=== PATIENT | male | born 1930 | race Hispanic/Latino ===

== ENCOUNTER 2017-07-16 20:40 | Inpatient (IN) | payer MEDICARE, MEDICAID ==
[2017-07-16] MEDS ORDERED: Albuterol-Ipratrop 3 mg / 0.5 (3 ml) UD ONE (20:57)
[2017-07-16 20:59] VITALS: BMI 27.1
[2017-07-16] MEDS ORDERED: Albuterol-Ipratrop 3 mg / 0.5 (3 ml) UD INH STA ×2 (21:01→21:02)
[2017-07-16] MEDS ORDERED: Piperacill/Tazo 3.375gm in Dex 3.375 GM/50 ML BAG IVPB STA (21:07)
[2017-07-16 21:18] LABS: BASO # 0.1 K/uL (0.0-0.2); BASO % 1.1 % (0.0-2.0); EOS # 0.2 K/uL (0.0-0.7); EOS % 1.7 % (0.0-4.0); HEMOGLOBIN 13.6 g/dL (12.0-18.0); LYMPH # 1.1 K/uL (1.0-4.3); LYMPH % 11.8 % (20.0-40.0); MEAN CELL VOLUME 86.7 fL (80.0-94.0); MEAN CORPUSCULAR HEMOGLOBIN 28.6 pg (27.0-31.0); MEAN PLATELET VOLUME 9.4 fL (7.2-11.7); MONO # 0.6 K/uL (0.0-0.8); MONO % 6.4 % (0.0-10.0); NEUT # 7.6 K/uL (1.8-7.0); RBC 4.76 Mil/uL (4.40-5.90); RED CELL DISTRIBUTION WIDTH 15.7 % (11.5-14.5); WHITE BLOOD COUNT 9.6 K/uL (4.8-10.8)
[2017-07-16 21:22] LABS: VENOUS BLOOD GAS BASE EXCESS -5.1 mmol/L (0.0-2.0); VENOUS BLOOD GAS PCO2 48 mmHg (40-60); VENOUS BLOOD GAS PO2 56 mm/Hg (30-55); VENOUS BLOOD PH 7.27 (7.32-7.43)
[2017-07-16 21:28] LABS: ALB/GLOB RATIO 1.1 (1.0-2.1); ALBUMIN 3.7 g/dL (3.5-5.0); CALCIUM 7.8 mg/dl (8.6-10.4)
[2017-07-16 21:30] LABS: INR 2.4; PROTHROMBIN TIME 27.3 SECONDS (9.7-12.2)
[2017-07-16 21:38] LABS: TROPONIN I 0.034 ng/mL (0.00-0.120)
--- NOTE | 2017-07-16 21:44 | C.PDOC ---
History Of Present Illness Patient is an 87 y/o male, with a Hx of AFib, HTN, and DM, who presents to the ED from long-term with a complaint of SOB. Per long-term, patient was hypoxic and tachypnic with no reported fever. Patient is full code at this time. No other physical complaints at this time. Time Seen by Provider: 07/16/17 20:57 Chief Complaint (Nursing): Shortness Of Breath History Per: Patient, Other (long-term) History/Exam Limitations: no limitations Onset/Duration Of Symptoms: Other (CREDIT INTERN) Current Symptoms Are (Timing): Still Present Associated Symptoms: denies: Fever Recent travel outside of the [place]: No Past Medical History Reviewed: Historical Data, Nursing Documentation, Vital Signs Vital Signs: Last Vital Signs Temp 98.4 F 07/20/17 15:00 Pulse 77 07/20/17 22:45 Resp 20 07/20/17 15:00 BP 183/96 H 07/20/17 22:45 Pulse Ox 96 07/20/17 23:17 - Medical History PMH: Anemia, CAD, Diabetes, HTN, Parkinson's Disease Denies: Depression Surgical History: Coronary Stent - [facility] Procedures CARDIOPULM RESUSCITA NOS (03/12/14) CLOSED ENDOSCOPIC BIOPSY OF LARGE INTESTINE (03/12/14) CONTINUOUS INVASIVE MECHANICAL VENTILATION <96 CONSEC HRS (03/12/14) ENDOSC POLYPECTOMY OF LG INTEST (03/26/99) ESOPHAGOGASTRODUODENOSCOPY [EGD] W/CLOSED BIOPSY (03/12/14) HEMODIALYSIS (03/12/14) INFUSION OF VASOPRESSOR AGENT (03/12/14) INJECT/INFUSE NEC (03/12/14) INSERT ENDOTRACHEAL TUBE (03/12/14) INSERT INDWELLING CATH (03/12/14) INTRA-ABD LG BOWEL MANIP (03/12/14) LG-TO-LG BOWEL ANASTOM (03/12/14) NEBULIZER THERAPY (04/21/14) NON-INVASIVE MECHANICAL VENTILATION (03/12/14) OPEN AND OTHER LEFT HEMICOLECTOMY (03/12/14) PACKED CELL TRANSFUSION (03/12/14) REPAIR OF SPLEEN (03/12/14) THERAPEUTIC ERYTHROCYTAPHERESIS (03/12/14) VENOUS CATHETERIZATION FOR RENAL DIALYSIS (03/12/14) VENOUS CATHETERIZATION NEC (03/12/14) Family History: States: No Known Family Hx - Social History Hx Tobacco Use: Yes (QUIT 4 YRS AGO) Hx Alcohol Use: No Hx Substance Use: No Review Of Systems Except As Marked, All Systems Reviewed And Found Negative. Respiratory: Positive for: Shortness of Breath, Other (hypoxic) Physical Exam - Physical Exam Appears: Well, Non-toxic, No Acute Distress Skin: Normal Color, Warm, Dry Head: Atraumatic, Normacephalic Oral Mucosa: Moist Cardiovascular: Rhythm Regular, No Murmur, Other (tachycardic) Respiratory: Normal Breath Sounds, Rhonchi (bilateral), Wheezing ED Course And Treatment - Laboratory Results Result Diagrams: 07/20/17 06:23 07/20/17 06:23 ECG: Interpreted By Me, Viewed By Me ECG Rhythm: Sinus Tachycardia, L BBB (history of L BBB dating 04/22/2014) Rate From EC (bpm) O2 Sat by Pulse Oximetry: 96 Medical Decision Making Medical Decision Making: Plan: * EKG, CXR, and blood work ordered * Lasix, vancocin, duoneb, and IV fluids Patient admitted to Hospitalist Dr. Wallace at 9:55pm. tolerating bipap, need tele, diuresis Disposition - Disposition Disposition: HOSPITALIZED Disposition Time: 10:00 Condition: FAIR - Clinical Impression Clinical Impression: Influenza A, Pneumonia, CHF (congestive heart failure) - Scribe Statement The provider has reviewed the documentation as recorded by the Scribe Maritza Franco All medical record entries made by the Scribe were at my direction and personally dictated by me. I have reviewed the chart and agree that the record accurately reflects my personal performance of the history, physical exam, medical decision making, and the department course for this patient. I have also personally directed, reviewed, and agree with the discharge instructions and disposition. Decision To Admit - Pt Status Changed To: Hospital Disposition Of: Inpatient - Admit Certification Admit to Inpatient:: After my assessment, the patient will require hospitalization for at least two midnights. This is because of the severity of symptoms shown, intensity of services needed, and/or the medical risk in this patient being treated as an outpatient. - InPatient: Physician Admission Certification: I certify that this patient requires 2 or more midnights of care for the following reason:: needs bipap - . Bed Request Type: Telemetry Admitting Physician: Ramesh Wallace Patient Diagnosis: Influenza A, Pneumonia, CHF (congestive heart failure) Critical Care Time - Critical Care Note Total Time (in mins): 35 Documented critical care: time excludes all time spent performing seperately billable procedures.
--- NOTE | 2017-07-16 22:08 | CP.PCM.HP ---
<Nicol Stephens - Last Filed: 07/17/17 04:36> History of Present Illness - History of Present Illness History of Present Illness: Medicine Note for Hospital Service CC: SOB HPI: Patient is an 87 y/o male, with a Hx of AFib, HTN, DM, PD, and Dementia who presents to the ED from residential with a complaint of SOB. Per residential, patient was hypoxic and tachypnic with no reported fever. Patient is full code at this time. History unable to be retrieve from the patient, he is alert but does not answer questions. Patient was saturating well on BiPAP - O2% was titrated to 30% during exam. PMHx: AFib, HTN, DM, PD, and Dementia PSHx: Hemicolectomy s/p colon cancer Meds: As per AUG, reviewed and confirmed All: NKDA SHx: Unknown FHx: Unknown PMD: Unknown Present on Admission - Present on Admission Any Indicators Present on Admission: No Past Patient History - Infectious Disease Hx of Infectious Diseases: None - Tetanus Immunizations Tetanus Immunization: Unknown - Past Social History Smoking Status: Former Smoker - CARDIAC Hx Hypertension: Yes - PULMONARY Hx Respiratory Disorders: No - NEUROLOGICAL Hx Parkinson's Disease: Yes - HEENT Hx HEENT Problems: No - RENAL Other/Comment: Renal Insufficiency - ENDOCRINE/METABOLIC Hx Endocrine Disorders: Yes Hx Diabetes Mellitus Type 2: Yes - HEMATOLOGICAL/ONCOLOGICAL Hx Anemia: Yes - INTEGUMENTARY Hx Dermatological Problems: No - MUSCULOSKELETAL/RHEUMATOLOGICAL Hx Falls: Yes Hx Unsteady Gait: Yes - GASTROINTESTINAL Hx Gastrointestinal Disorders: No - GENITOURINARY/GYNECOLOGICAL Hx Genitourinary Disorders: Yes (Frequency, dribbling) - PSYCHIATRIC Hx Depression: No Hx Substance Use: No - SURGICAL HISTORY Hx Coronary Stent: Yes - ANESTHESIA Hx Anesthesia Reactions: No Hx Malignant Hyperthermia: No Meds Allergies/Adverse Reactions: Allergies Allergy/AdvReac Type Severity Reaction Status Date / Time No Known Allergies Allergy Verified 07/16/17 20:59 Physical Exam - Constitutional Appears: No Acute Distress - Head Exam Head Exam: NORMAL INSPECTION, NORMOCEPHALIC - Eye Exam Eye Exam: EOMI, Normal appearance, PERRL Pupil Exam: NORMAL ACCOMODATION - ENT Exam ENT Exam: Mucous Membranes Moist, Normal Exam - Respiratory Exam Respiratory Exam: Decreased Breath Sounds - Cardiovascular Exam Cardiovascular Exam: Tachycardia - GI/Abdominal Exam GI & Abdominal Exam: Normal Bowel Sounds, Soft. absent: Distended, Tenderness Additional comments: surgical scar noted at midline - Extremities Exam Extremities exam: Positive for: normal inspection, pedal pulses present. Negative for: pedal edema, tenderness - Back Exam Back exam: NORMAL INSPECTION - Neurological Exam Neurological exam: Alert - Psychiatric Exam Psychiatric exam: Normal Affect, Normal Mood - Skin Skin Exam: Dry, Intact, Normal Color, Warm Results - Vital Signs Recent Vital Signs: Last Vital Signs Temp 98 F 07/16/17 20:59 Pulse 100 H 07/16/17 21:45 Resp 23 07/16/17 21:45 BP 161/58 H 07/16/17 21:52 Pulse Ox 96 07/16/17 21:57 - Labs Result Diagrams: 07/16/17 21:06 07/16/17 21:06 Labs: Laboratory Results - last 24 hr 07/16/17 07/16/17 07/16/17 21:06 21:06 21:06 WBC 9.6 RBC 4.76 Hgb 13.6 Hct 41.2 MCV 86.7 MCH 28.6 MCHC 33.0 RDW 15.7 H Plt Count 162 MPV 9.4 Neut % (Auto) 79.0 H Lymph % (Auto) 11.8 L Reynolds % (Auto) 6.4 Eos % (Auto) 1.7 Baso % (Auto) 1.1 Neut # 7.6 H Lymph # 1.1 Reynolds # 0.6 Eos # 0.2 Baso # 0.1 PT 27.3 H INR 2.4 APTT 37 H pO2 VBG pH VBG pCO2 VBG HCO3 VBG Total CO2 VBG O2 Sat (Calc) VBG Base Excess VBG Potassium Glucose Lactate Crit Value Called To Crit Value Called By Crit Value Read Back Blood Gas Notified Time Sodium 130 L Potassium 5.4 H Chloride 99 Carbon Dioxide 22 Anion Gap 14 BUN 32 H Creatinine 2.0 H Est GFR ( Amer) 38 Est GFR (Non-Af Amer) 32 POC Glucose (mg/dL) Random Glucose 263 H Calcium 7.8 L Total Bilirubin 0.5 AST 28 ALT 33 Alkaline Phosphatase 100 Troponin I 0.0340 NT-Pro-B Natriuret Pep 4060 H Total Protein 7.0 Albumin 3.7 Globulin 3.3 Albumin/Globulin Ratio 1.1 Venous Blood Potassium 07/16/17 07/16/17 21:13 21:18 WBC RBC Hgb Hct MCV MCH MCHC RDW Plt Count MPV Neut % (Auto) Lymph % (Auto) Reynolds % (Auto) Eos % (Auto) Baso % (Auto) Neut # Lymph # Reynolds # Eos # Baso # PT INR APTT pO2 56 H VBG pH 7.27 L VBG pCO2 48 VBG HCO3 20.6 VBG Total CO2 23.5 VBG O2 Sat (Calc) 90.0 H VBG Base Excess -5.1 L VBG Potassium 6.3 H* Glucose 270 H Lactate 1.2 Crit Value Called To Crit Value Called By Kortney hernandez Crit Value Read Back Y Blood Gas Notified Time 2121 Sodium 134.0 Potassium Chloride 106.0 Carbon Dioxide Anion Gap BUN Creatinine Est GFR ( Amer) Est GFR (Non-Af Amer) POC Glucose (mg/dL) 248 H Random Glucose Calcium Total Bilirubin AST ALT Alkaline Phosphatase Troponin I NT-Pro-B Natriuret Pep Total Protein Albumin Globulin Albumin/Globulin Ratio Venous Blood Potassium 6.3 H* Assessment & Plan - Assessment and Plan (Free Text) Assessment: 87 y/o male, with a Hx of AFib, HTN, DM, PD, and Dementia who presents to the ED from residential with a complaint of SOB. Plan: Influenza Febrile, no leukocytosis with left shift Influenza + Imaging: CXR: Questionable infiltrates F/U CT Chest Meds: Zosyn, Vancomycin started 07/16/17 - f/u vanco trough Tamiflu 75mg PO daily x 5 days (renally dosed) CKD Stage 3B Hx of CHF ECHO 2013 LVEF 28% F/U ECHO HX AFib Resumed home medications: Coumadin will need to be ordered daily. Coumadin 2mg MWF, Coumadin 1mg STT. Current INR 2.4 F/U INR HX DM Accuchecks F/U HgbA1C ISS- Low Hx HTN Resumed home medications: Metoprolol 50mg PO daily HX PD Hx Dementia Resumed home medications: Sinemet daily Prophylactic Measures GI PPX: Pepcid 20mg PO daily DVT PPX: SCDs, patient on coumadin DW Nicol Flor DO, PGY-1 <Ramesh Wallace P - Last Filed: 07/17/17 07:07> Results - Vital Signs Recent Vital Signs: Last Vital Signs Temp 98.9 F 07/17/17 01:02 Pulse 78 07/17/17 05:01 Resp 20 07/17/17 01:09 BP 124/67 07/17/17 01:02 Pulse Ox 98 07/17/17 01:02 - Labs Result Diagrams: 07/16/17 21:06 07/16/17 21:06 Labs: Laboratory Results - last 24 hr 07/16/17 07/16/17 07/16/17 21:06 21:06 21:06 WBC 9.6 RBC 4.76 Hgb 13.6 Hct 41.2 MCV 86.7 MCH 28.6 MCHC 33.0 RDW 15.7 H Plt Count 162 MPV 9.4 Neut % (Auto) 79.0 H Lymph % (Auto) 11.8 L Reynolds % (Auto) 6.4 Eos % (Auto) 1.7 Baso % (Auto) 1.1 Neut # 7.6 H Lymph # 1.1 Reynolds # 0.6 Eos # 0.2 Baso # 0.1 PT 27.3 H INR 2.4 APTT 37 H pO2 VBG pH VBG pCO2 VBG HCO3 VBG Total CO2 VBG O2 Sat (Calc) VBG Base Excess VBG Potassium Glucose Lactate Crit Value Called To Crit Value Called By Crit Value Read Back Blood Gas Notified Time Sodium 130 L Potassium 5.4 H Chloride 99 Carbon Dioxide 22 Anion Gap 14 BUN 32 H Creatinine 2.0 H Est GFR ( Amer) 38 Est GFR (Non-Af Amer) 32 POC Glucose (mg/dL) Random Glucose 263 H Calcium 7.8 L Total Bilirubin 0.5 AST 28 ALT 33 Alkaline Phosphatase 100 Troponin I 0.0340 NT-Pro-B Natriuret Pep 4060 H Total Protein 7.0 Albumin 3.7 Globulin 3.3 Albumin/Globulin Ratio 1.1 Venous Blood Potassium Influenza Typ A,B (EIA) 07/16/17 07/16/17 07/16/17 21:13 21:18 21:25 WBC RBC Hgb Hct MCV MCH MCHC RDW Plt Count MPV Neut % (Auto) Lymph % (Auto) Reynolds % (Auto) Eos % (Auto) Baso % (Auto) Neut # Lymph # Reynolds # Eos # Baso # PT INR APTT pO2 56 H VBG pH 7.27 L VBG pCO2 48 VBG HCO3 20.6 VBG Total CO2 23.5 VBG O2 Sat (Calc) 90.0 H VBG Base Excess -5.1 L VBG Potassium 6.3 H* Glucose 270 H Lactate 1.2 Crit Value Called To Crit Value Called By Kortney hernandez Crit Value Read Back Y Blood Gas Notified Time 2121 Sodium 134.0 Potassium Chloride 106.0 Carbon Dioxide Anion Gap BUN Creatinine Est GFR ( Amer) Est GFR (Non-Af Amer) POC Glucose (mg/dL) 248 H Random Glucose Calcium Total Bilirubin AST ALT Alkaline Phosphatase Troponin I NT-Pro-B Natriuret Pep Total Protein Albumin Globulin Albumin/Globulin Ratio Venous Blood Potassium 6.3 H* Influenza Typ A,B (EIA) Pos for influenza a H 07/17/17 06:12 WBC RBC Hgb Hct MCV MCH MCHC RDW Plt Count MPV Neut % (Auto) Lymph % (Auto) Reynolds % (Auto) Eos % (Auto) Baso % (Auto) Neut # Lymph # Reynolds # Eos # Baso # PT INR APTT pO2 VBG pH VBG pCO2 VBG HCO3 VBG Total CO2 VBG O2 Sat (Calc) VBG Base Excess VBG Potassium Glucose Lactate Crit Value Called To Crit Value Called By Crit Value Read Back Blood Gas Notified Time Sodium Potassium Chloride Carbon Dioxide Anion Gap BUN Creatinine Est GFR ( Amer) Est GFR (Non-Af Amer) POC Glucose (mg/dL) 126 H Random Glucose Calcium Total Bilirubin AST ALT Alkaline Phosphatase Troponin I NT-Pro-B Natriuret Pep Total Protein Albumin Globulin Albumin/Globulin Ratio Venous Blood Potassium Influenza Typ A,B (EIA) Attending/Attestation - Attestation I have personally seen and examined this patient.: Yes I have fully participated in the care of the patient.: Yes I have reviewed all pertinent clinical information: Yes Notes (Text): Assessment * SOB from influenza and pna * h/o CHF clinically not decompenseated * H/o parkinson * h/o dm * H/o dementia * H/o afib currently sinus on coumedin, therapeutic inr * h/o cri Plan * Empiric abx vanco, zosyn, tamiflu * supportive care * DVT prophylaxis with coumedin * Echo due to h/o CHF * Chest CT to assess infiltrates see on CXR * Abg * See orders for detail.
[2017-07-17] MEDS ORDERED: Piperacill/Tazo 3.375gm in Dex 3.375 GM/50 ML BAG IVPB SCH (00:15)
[2017-07-17] MEDS: Piperacill/Tazo 3.375gm in Dex 3.375 GM/50 ML BAG IVPB SCH ×4 (04:19→21:45)
[2017-07-17] MEDS: (Novolin R) Insulin Human Regular 100 units/ml vial SC SCH ×4 (07:53→21:53)
[2017-07-17 08:02] LABS: BASO % 0.4 % (0.0-2.0); EOS # 0.1 K/uL (0.0-0.7); EOS % 1.4 % (0.0-4.0); HEMOGLOBIN 12.3 g/dL (12.0-18.0); MEAN PLATELET VOLUME 9.4 fL (7.2-11.7); NRBC % 0.1 % (0.0-2.0); RED CELL DISTRIBUTION WIDTH 15.5 % (11.5-14.5)
[2017-07-17 08:30] LABS: ALB/GLOB RATIO 1.1 (1.0-2.1); ALBUMIN 3.4 g/dL (3.5-5.0); CALCIUM 7.7 mg/dl (8.6-10.4)
[2017-07-17 08:33] LABS: LYMPH # 0.8 K/uL (1.0-4.3); LYMPH % 18.7 % (20.0-40.0); MEAN CELL VOLUME 86.3 fL (80.0-94.0); MEAN CORPUSCULAR HEMOGLOBIN 28.6 pg (27.0-31.0); MEAN CORPUSCULAR HGB CONC 33.1 g/dL (33.0-37.0); MONO # 0.6 K/uL (0.0-0.8); MONO % 14.9 % (0.0-10.0); NEUT # 2.8 K/uL (1.8-7.0); NEUT % 64.6 % (50.0-75.0); RBC 4.31 Mil/uL (4.40-5.90)
[2017-07-17 08:34] LABS: WHITE BLOOD COUNT 4.3 K/uL (4.8-10.8)
--- NOTE | 2017-07-17 08:34 | RAD ---
Chest x-ray single frontal view History: Chest pain. Comparison: 07/16/2014 Findings: Prominent bibasilar airspace opacities. Small bilateral pleural effusions. Diffuse increased interstitial lung markings. Biapical pleural thickening. Cardiomegaly. Degenerative changes in the spine and shoulders. Impression: Prominent bibasilar airspace opacities. Small bilateral pleural effusions. Diffuse increased interstitial lung markings. Biapical pleural thickening. Cardiomegaly.
[2017-07-17 08:40] LABS: T4 6.09 ug/dL (5.5-11.0)
--- NOTE | 2017-07-17 09:03 | CP.PCM.PN ---
Subjective - Date & Time of Evaluation Date of Evaluation: 07/17/17 Time of Evaluation: 07:00 - Subjective Subjective: Patient was seen examined at bedside in the AM. Patient states yesterday he enjoyed the day with his family as it was his birthday but later in the evening he experienced some difficulty breathing. He states he now feels better. He denies shortness of breath, chest pain, nausea, vomiting, fever, chills, sweats , diarrhea or constipation. He states he does have a cough and he is producing white sputum. He states he normally urinates often in the residential but he does not use a guzman catheter in the residential. Objective - Vital Signs/Intake and Output Vital Signs (last 24 hours): Temp Pulse Resp BP Pulse Ox 98.9 F 86 20 124/67 98 07/17/17 01:02 07/17/17 07:08 07/17/17 01:09 07/17/17 01:02 07/17/17 01:02 Intake and Output: 07/17/17 07/17/17 06:59 18:59 Output Total 200 Balance -200 - Medications Medications: Current Medications Acetaminophen (Tylenol 325mg Tab) 650 mg PO Q6 [facility] Stop: 07/18/17 00:08 Last Admin: 07/17/17 05:53 Dose: Not Given Carbidopa/Levodopa (Sinemet) 1 tab PO QID [facility] Docusate Sodium (Colace) 100 mg PO HS [facility] Famotidine (Pepcid) 20 mg PO DAILY [facility] Gabapentin (Neurontin) 100 mg PO BID [facility] Vancomycin/Sodium Chloride (Vancomycin 1 Gm/Ns 200 Ml) 1 gm in 200 mls @ 133 mls/hr IVPB DAILY [facility] Stop: 07/22/17 10:01 Piperacillin Sod/Tazobactam Sod (Zosyn 3.375 Gm Iv Premix) 3.375 gm in 50 mls @ 100 mls/hr IVPB Q6H [facility] Last Admin: 07/17/17 04:19 Dose: 100 mls/hr Insulin Human Regular (Novolin R) 0 unit SC ACHS [facility] PRN Reason: Protocol Last Admin: 07/17/17 07:53 Dose: Not Given Metoprolol Succinate (Toprol Xl) 50 mg PO DAILY [facility] Oseltamivir Phosphate (Tamiflu Cap) 75 mg PO DAILY [facility] Stop: 07/22/17 02:25 Rosuvastatin Calcium (Crestor) 20 mg PO HS [facility] Tamsulosin HCl (Flomax) 0.4 mg PO DAILY [facility] Timolol Maleate (Timoptic 0.5% Ophth Soln) 1 drop OU BID [facility] - Labs Labs: 07/17/17 07:50 07/17/17 07:50 PT 27.3 SECONDS (9.7-12.2) H 07/16/17 21:06 INR 2.4 07/16/17 21:06 APTT 37 SECONDS (21-34) H 07/16/17 21:06 - Constitutional Appears: No Acute Distress - Head Exam Head Exam: ATRAUMATIC, NORMAL INSPECTION - Eye Exam Eye Exam: EOMI, Normal appearance - ENT Exam ENT Exam: Mucous Membranes Moist - Respiratory Exam Respiratory Exam: Wheezes, NORMAL BREATHING PATTERN. absent: Rales, Rhonchi, Respiratory Distress, Stridor - Cardiovascular Exam Cardiovascular Exam: REGULAR RHYTHM, RRR, +S1, +S2 - GI/Abdominal Exam GI & Abdominal Exam: Soft, Normal Bowel Sounds. absent: Tenderness - Extremities Exam Extremities Exam: Normal Inspection. absent: Pedal Edema, Tenderness - Neurological Exam Neurological Exam: Alert, Awake, Oriented x3 - Psychiatric Exam Psychiatric exam: Normal Affect, Normal Mood - Skin Skin Exam: Normal Color, Warm Assessment and Plan - Assessment and Plan (Free Text) Assessment: 87 y/o male, with a Hx of AFib, HTN, DM, Parkinson's Disease, and Dementia who presents to the ED from residential with a complaint of SOB. 1.) Influenza Type A - Febrile on admission; currently afebrile, no leukocytosis - Imaging: CXR: Questionable infiltrates CT Chest: Dense coronary artery calcifications. Right peritracheal lymph node measures approximately 10 mm in short axis. Additional sub cm mediastinal lymph nodes, nonspecific. Mild pulmonary venous congestion. Small bilateral pleural effusions and associated consolidations. 6 mm spiculated nodular density in the right upper lobe. Recommend [address] follow-up. Limited visualized upper abdomen: Cholelithiasis. Too small to characterize partially imaged renal hypodensities, possibly cysts. Large partially imaged fat containing ventral hernia. - Medications: * Zosyn started 07/16/17 * Vancomycin started 07/16/17 - f/u vanco trough * Tamiflu 75mg PO daily x 5 days (renally dosed) started 07/16/17 - Venti Mask 2.) CKD Stage 3B - BUN/Cr: 36/2.1 - GFR 27.28 - guzman catheter: Monitor I/Os 3.) History of CHF - ECHO 2013 LVEF 28% - F/U ECHO 4.) History AFib - Resumed home medications: Coumadin will need to be ordered daily. * Coumadin 2mg MWF * Coumadin 1mg STT - Current INR 2.4 - Monitor INR 5.) History of DM - Accuchecks - HgbA1C: 6.8 - ISS- Low 6.) History of Hypertension - Resumed home medications: Metoprolol 50mg PO daily 7.) History of Parkinson's Disease 8.) History of Dementia - Resumed home medications: Sinemet daily 9.) Prophylaxis - GI PPX: Pepcid 20mg PO daily - DVT PPX: SCDs, patient on coumadin Case discussed with Dr. Prosper Chan PGY-1
[2017-07-17] MEDS ORDERED: Vancomycin 1 gm/NS 200 ml 1 GM/200 ML BAG IVPB SCH (10:00)
[2017-07-17] MEDS: Carbidopa/Levodopa 25/250 PO SCH ×4 (11:32→21:45)
[2017-07-17] MEDS: Metoprolol Succinate 50 mg XL Tab PO SCH (11:33)
--- NOTE | 2017-07-17 11:36 | CT ---
CT chest without IV contrast Indication: Hypoxia Technique: Contiguous axial images were obtained through the chest without intravenous contrast enhancement. Sagittal and coronal reconstructions were generated and reviewed. This CT exam was performed using 1 or more of the falling dose reduction techniques: Automated exposure control, adjustment of the MAA and/or kV according to patient size, and/or use of iterative reconstruction technique. Radiation dose (DLP): 799.88 MGy-cm. Comparison: Chest x-ray performed 07/16/17 Findings: Visualized portions of the inferior thyroid gland appear unremarkable. The unenhanced mediastinal and hilar vascular structures appear grossly unremarkable. Heart size appears within normal limits. Dense coronary artery calcifications. Right peritracheal lymph node measures approximately 10 mm in short axis (series 4, image 48). Additional sub cm mediastinal lymph nodes, nonspecific. Mild pulmonary venous congestion. Small bilateral pleural effusions and associated consolidations. No pneumothorax. 6 mm spiculated nodular density in the right upper lobe (series 4, image 30). Limited visualization of the noncontrast upper abdomen demonstrates cholelithiasis. Too small to characterize partially imaged renal hypodensities, possibly cysts. Large partially imaged fat containing ventral hernia. Degenerative changes of the spine. Impression: Dense coronary artery calcifications. Right peritracheal lymph node measures approximately 10 mm in short axis. Additional sub cm mediastinal lymph nodes, nonspecific. Mild pulmonary venous congestion. Small bilateral pleural effusions and associated consolidations. 6 mm spiculated nodular density in the right upper lobe. Recommend [address] follow-up. Limited visualized upper abdomen: Cholelithiasis. Too small to characterize partially imaged renal hypodensities, possibly cysts. Large partially imaged fat containing ventral hernia.
[2017-07-17] MEDS ORDERED: Albuterol-Ipratrop 3 mg / 0.5 (3 ml) UD INH PRN (14:19)
[2017-07-17] MEDS: Saccharomyces Boulardi 250 mg Cap PO SCH (17:42)
[2017-07-17] MEDS: guaiFENesin 600 mg ER Tab PO SCH (17:43)
[2017-07-17 18:19] LABS: INR 1.7; PROTHROMBIN TIME 19.8 SECONDS (9.7-12.2)
[2017-07-17 19:07] LABS: SQUAMOUS EPITHIAL 1 /hpf (0-5); URINE BACTERIA RARE (<OCC); URINE BILIRUBIN NEGATIVE (NEGATIVE); URINE BLOOD NEGATIVE (NEGATIVE); URINE CLARITY Clear (Clear); URINE COLOR Yellow (YELLOW); URINE GLUCOSE (UA) NORMAL (Normal); URINE LEUKOCYTE ESTERASE NEG Leu/uL (Negative); URINE NITRATE NEGATIVE (NEGATIVE); URINE PROTEIN 2+ mg/dL (NEGATIVE); URINE UROBILINOGEN NORMAL mg/dL (0.2-1.0)
--- NOTE | 2017-07-17 19:18 | CARD ---
APPROVED REPORT EXAM: Two-dimensional and M-mode echocardiogram with Doppler and color Doppler. Other Information Quality : GoodRhythm : INDICATION Atrial Fibrillation Congestive Heart Failure RISK FACTORS Hypertension Diabetes 2D DIMENSIONS IVSd1.4 (0.7-1.1cm)LVDd5.5 (3.9-5.9cm) PWd0.9 (0.7-1.1cm)LVDs4.3 (2.5-4.0cm) FS (%) 22.2 %LVEF (%)44.3 (>50%) M-Mode DIMENSIONS RVDd1.02 (2.1-3.2cm)Left Atrium (MM)3.95 (2.5-4.0cm) IVSd0.94 (0.7-1.1cm)Aortic Root3.33 (2.2-3.7cm) LVDd5.66 (4.0-5.6cm)Aortic Cusp Exc.2.28 (1.5-2.0cm) PWd1.17 (0.7-1.1cm)FS (%) 17 % LVDs4.69 (2.0-3.8cm)LVEF (%)36 (>50%) Mitral Valve MV E [id number]/sMV A Kxvxowqj03.7cm/sE/A ratio2.3 TDI E/Lateral E'0.0E/Medial E'0.0 Tricuspid Valve TR Peak [id number]/sTR Peak [id number] LEFT VENTRICLE The Left Ventricle is moderately dilated. Possible borderline to mild concentric left ventricular hypertrophy. The systolic function is moderately impaired. The Ejection Fraction is - 35-40%. There is global hypokinesis of the left ventricle. Moderate diastolic dysfunction. Transmitral Doppler flow pattern is Grade II-pseudonormal filling dynamics. Elevated left atrial pressure. RIGHT VENTRICLE The right ventricular systolic function is normal. ATRIA The left atrium is mildly dilated. The right atrium is not well visualized. AORTIC VALVE The aortic valve is normal in structure. No aortic regurgitation is present. MITRAL VALVE The mitral valve is normal in structure. Mitral annular calcification is borderline. Mitral regurgitation is mild. TRICUSPID VALVE The tricuspid valve is normal in structure. There is mild tricuspid regurgitation. Right ventricular systolic pressure is estimated at - 43 mmHg. There is mild pulmonary hypertension. PULMONIC VALVE The pulmonic valve is not well visualized. GREAT VESSELS The aortic root is normal in size. The IVC is normal in size and collapses >50% with inspiration. PERICARDIAL EFFUSION There is no gross pericardial effusion. <Conclusion> The left ventricle is moderately dilated with possible borderline to mild concentricr hypertrophy. There is global hypokinesis of the left ventricle. The systolic function is moderately impaired. The Ejection Fraction is - 35-40%. Moderate diastolic dysfunction. Transmitral Doppler flow pattern is Grade II-pseudonormal filling dynamics. Elevated left atrial pressure. The right ventricular systolic function is normal. Mitral regurgitation is mild. There is mild tricuspid regurgitation. Right ventricular systolic pressure is estimated at - 43 mmHg compatible with mild pulmonary hypertension. There is no gross pericardial effusion.
[2017-07-17] MEDS: Promethazine/Cod 6.25mg-10mg/5ml Syr UD PO PRN (21:46)
--- NOTE | 2017-07-17 22:08 | CARD ---
APPROVED REPORT EKG Measurement Heart [id number] <Conclusion> Sinus tachycardia Left bundle branch block Abnormal ECG
[2017-07-18] MEDS: Piperacill/Tazo 3.375gm in Dex 3.375 GM/50 ML BAG IVPB SCH (04:00)
--- NOTE | 2017-07-18 06:57 | CP.PCM.PN ---
Subjective - Date & Time of Evaluation Date of Evaluation: 07/18/17 Time of Evaluation: 07:00 - Subjective Subjective: Medicine Progress Note: Patient was seen and examined at bedside in the AM. Per nurse no acute events overnight. Patient denies shortness of breath, palpitations, chest pain, nausea , vomiting, fever, diarrhea or constipation. Patient states he is feeling well and slept well over night. Objective - Vital Signs/Intake and Output Vital Signs (last 24 hours): Temp Pulse Resp BP Pulse Ox 98.8 F 52 L 18 136/77 98 07/18/17 01:35 07/18/17 06:38 07/17/17 23:38 07/17/17 23:38 07/17/17 23:38 Intake and Output: 07/17/17 07/18/17 18:59 06:59 Intake Total 100 Output Total 600 100 Balance -600 0 - Medications Medications: Current Medications Albuterol/Ipratropium (Duoneb 3 Mg/0.5 Mg (3 Ml) Ud) 3 ml INH RQ6 PRN PRN Reason: Shortness of Breath Carbidopa/Levodopa (Sinemet) 1 tab PO QID [facility] Last Admin: 07/17/17 21:45 Dose: 1 tab Docusate Sodium (Colace) 100 mg PO HS [facility] Last Admin: 07/17/17 21:45 Dose: 100 mg Famotidine (Pepcid) 20 mg PO DAILY [facility] Last Admin: 07/17/17 11:32 Dose: 20 mg Gabapentin (Neurontin) 100 mg PO BID [facility] Last Admin: 07/17/17 17:43 Dose: 100 mg Guaifenesin (Mucinex La) 600 mg PO BID [facility] Last Admin: 07/17/17 17:43 Dose: 600 mg Vancomycin/Sodium Chloride (Vancomycin 1 Gm/Ns 200 Ml) 1 gm in 200 mls @ 133 mls/hr IVPB DAILY [facility] Stop: 07/22/17 10:01 Last Admin: 07/17/17 11:36 Dose: 133 mls/hr Piperacillin Sod/Tazobactam Sod (Zosyn 3.375 Gm Iv Premix) 3.375 gm in 50 mls @ 100 mls/hr IVPB Q6H [facility] Last Admin: 07/18/17 04:00 Dose: 100 mls/hr Insulin Human Regular (Novolin R) 0 unit SC ACHS [facility] PRN Reason: Protocol Last Admin: 07/17/17 21:53 Dose: Not Given Metoprolol Succinate (Toprol Xl) 50 mg PO DAILY [facility] Last Admin: 07/17/17 11:33 Dose: 50 mg Oseltamivir Phosphate (Tamiflu Cap) 75 mg PO DAILY [facility] Stop: 07/22/17 02:25 Last Admin: 07/17/17 11:33 Dose: 75 mg Promethazine HCl/Codeine (Phenergan/Codeine Oral Syrup) 5 ml PO Q4 PRN PRN Reason: Cough Last Admin: 07/17/17 21:46 Dose: 5 ml Rosuvastatin Calcium (Crestor) 20 mg PO HS [facility] Last Admin: 07/17/17 21:45 Dose: 20 mg Saccharomyces Boulardii (Florastor) 250 mg PO BID [facility] Last Admin: 07/17/17 17:42 Dose: 250 mg Tamsulosin HCl (Flomax) 0.4 mg PO DAILY [facility] Last Admin: 07/17/17 11:32 Dose: 0.4 mg Timolol Maleate (Timoptic 0.5% Ophth Soln) 1 drop OU BID [facility] Last Admin: 07/17/17 17:43 Dose: Not Given - Labs Labs: 07/17/17 07:50 07/17/17 07:50 PT 19.8 SECONDS (9.7-12.2) H D 07/17/17 18:10 INR 1.7 D 07/17/17 18:10 APTT 37 SECONDS (21-34) H 07/16/17 21:06 - Constitutional Appears: No Acute Distress - Head Exam Head Exam: ATRAUMATIC, NORMAL INSPECTION - Eye Exam Eye Exam: EOMI, Normal appearance - ENT Exam ENT Exam: Mucous Membranes Moist - Respiratory Exam Respiratory Exam: Clear to Ausculation Bilateral, Rales, Wheezes, NORMAL BREATHING PATTERN. absent: Respiratory Distress, Stridor - Cardiovascular Exam Cardiovascular Exam: REGULAR RHYTHM, +S1, +S2 - GI/Abdominal Exam GI & Abdominal Exam: Soft, Normal Bowel Sounds. absent: Tenderness - Extremities Exam Extremities Exam: Normal Inspection. absent: Tenderness - Neurological Exam Neurological Exam: Alert, Awake, Oriented x3 - Psychiatric Exam Psychiatric exam: Normal Affect, Normal Mood - Skin Skin Exam: Dry, Normal Color, Warm Assessment and Plan - Assessment and Plan (Free Text) Assessment: 87 y/o male, with a Hx of AFib, HTN, DM, Parkinson's Disease, and Dementia who presents to the ED from [facility] with a complaint of SOB. 1.) Hypoxic possibly secondary to pneumonia - Not in distress - Non-airway breather - ABG within normal limits - Lactate 1.4 - Pulm Consult: Dr. Lloyd --> help appreciated - ID Consult: Dr. Thornton --> help appreciated - Imaging CT Chest: Dense coronary artery calcifications. Right peritracheal lymph node measures approximately 10 mm in short axis. Additional sub cm mediastinal lymph nodes, nonspecific. Mild pulmonary venous congestion. Small bilateral pleural effusions and associated consolidations. 6 mm spiculated nodular density in the right upper lobe. Recommend [address] follow-up. Limited visualized upper abdomen: Cholelithiasis. Too small to characterize partially imaged renal hypodensities, possibly cysts. Large partially imaged fat containing ventral hernia. X-ray (07/18/17): Improving congestive heart failure. - Blood culture negative - preliminary - Medications * Duoneb q4h * Zosyn started 07/16/17; Zosyn dose changed to 2.25gm on 07/18/17 2.) Influenza Type A - Febrile on admission; currently afebrile, no leukocytosis - Imaging: CXR: Questionable infiltrates CT Chest: Dense coronary artery calcifications. Right peritracheal lymph node measures approximately 10 mm in short axis. Additional sub cm mediastinal lymph nodes, nonspecific. Mild pulmonary venous congestion. Small bilateral pleural effusions and associated consolidations. 6 mm spiculated nodular density in the right upper lobe. Recommend [address] follow-up. Limited visualized upper abdomen: Cholelithiasis. Too small to characterize partially imaged renal hypodensities, possibly cysts. Large partially imaged fat containing ventral hernia. - Medications: * Zosyn started 07/16/17; Zosyn dose changed to 2.25gm on 07/18/17 * Vancomycin started 07/16/17 - discontinued 07/18/17 * Vanco Trogh 10.8 * Random Vanco 9.98 * Tamiflu 30mg PO daily x 5 days (renally dosed) started 07/16/17 - Procalcitonin: 6.26 - ID Consult: Dr. Thornton --> help appreciated 3.) CKD Stage 3B - BUN/Cr: 40/2.4 - guzman catheter: Monitor I/Os - urine culture negative 4.) History of CHF - ECHO 2013 LVEF 28% - ECHO (07/17/17): LVEF 35-40%. The left ventricle is moderately dilated with possible borderline to mild concentric hypertrophy. There is global hypokinesis of the left ventricle. The systolic function is moderately impaired. The right ventricular systolic function is normal. Mitral regurgitation is mild. There is mild tricuspid regurgitation. Right ventricular systolic pressure is about 43mmHg compatible with mild pulmonary hypertension. There is no gross pericardial effusion. 5.) History AFib - Resumed home medications: Coumadin will need to be ordered daily. * Coumadin 2mg MWF * Coumadin 1mg STT - Current INR 1.6 - Monitor INR 6.) History of DM - Accuchecks - HgbA1C: 6.8 - ISS- Low 7.) History of Hypertension - Resumed home medications: Metoprolol 50mg PO daily 8.) History of Parkinson's Disease 9.) History of Dementia - Resumed home medications: Sinemet daily 10.) Prophylaxis - GI PPX: Pepcid 20mg PO daily - DVT PPX: SCDs, patient on coumadin - PT/OT Case discussed with Dr. Prosper Chan PGY-1
[2017-07-18] MEDS: (Novolin R) Insulin Human Regular 100 units/ml vial SC SCH ×4 (07:14→21:24)
[2017-07-18 08:03] LABS: EOS # 0.3 K/uL (0.0-0.7); EOS % 7.3 % (0.0-4.0); HEMOGLOBIN 12.1 g/dL (12.0-18.0); LYMPH # 1.1 K/uL (1.0-4.3); MEAN CELL VOLUME 87.1 fL (80.0-94.0); MEAN CORPUSCULAR HEMOGLOBIN 28.4 pg (27.0-31.0); MEAN CORPUSCULAR HGB CONC 32.6 g/dL (33.0-37.0); MEAN PLATELET VOLUME 9.6 fL (7.2-11.7); MONO # 0.6 K/uL (0.0-0.8); MONO % 16.5 % (0.0-10.0); NEUT # 1.6 K/uL (1.8-7.0); NEUT % 45.2 % (50.0-75.0); NRBC % 0.1 % (0.0-2.0); RBC 4.27 Mil/uL (4.40-5.90); RED CELL DISTRIBUTION WIDTH 15.6 % (11.5-14.5); WHITE BLOOD COUNT 3.6 K/uL (4.8-10.8)
[2017-07-18 08:17] LABS: INR 1.6; PROTHROMBIN TIME 18.6 SECONDS (9.7-12.2)
[2017-07-18 08:46] LABS: ALB/GLOB RATIO 1.1 (1.0-2.1); ALBUMIN 3.4 g/dL (3.5-5.0); CALCIUM 7.8 mg/dl (8.6-10.4); MAGNESIUM 1.9 mg/dL (1.6-2.3)
[2017-07-18] MEDS: Saccharomyces Boulardi 250 mg Cap PO SCH ×2 (09:23→17:20)
[2017-07-18] MEDS: guaiFENesin 600 mg ER Tab PO SCH ×2 (09:23→17:20)
[2017-07-18] MEDS: Carbidopa/Levodopa 25/250 PO SCH ×4 (09:24→21:24)
[2017-07-18] MEDS: Metoprolol Succinate 50 mg XL Tab PO SCH ×2 (09:28→10:47)
[2017-07-18 10:33] LABS: ABG ALLEN TEST POS; ARTERIAL BLOOD GAS O2 SAT 99.3 % (95-98); ARTERIAL BLOOD GAS PCO2 40 mm/Hg (35-45); ARTERIAL BLOOD GAS PH 7.38 (7.35-7.45); ARTERIAL BLOOD GAS PO2 139 mm/Hg (80-100); ARTERIAL BLOOD GAS TCO2 24.9 mmol/L (22-28)
[2017-07-18] MEDS: Piperacill/Tazo 2.25gm in Dex 2.25 GM/50 ML BAG IVPB SCH ×2 (10:47→17:19)
[2017-07-18] MEDS: Promethazine/Cod 6.25mg-10mg/5ml Syr UD PO PRN ×2 (10:53→14:50)
--- NOTE | 2017-07-18 10:55 | RAD ---
HISTORY: dyspnea on exertion COMPARISON: 07/16/2017. FINDINGS: LUNGS: The lungs are well inflated. Again seen is pulmonary venous congestion and redistribution slightly improved since the prior examination. There is also improved aeration in the right lower lobe. PLEURA: Suspect small left pleural effusion, no pneumothorax apparent. Interval improvement in right pleural effusion. CARDIOVASCULAR: The heart remains enlarged with prominent central vasculature. OSSEOUS STRUCTURES: No significant abnormalities. VISUALIZED UPPER ABDOMEN: Normal. OTHER FINDINGS: None. IMPRESSION: Improving congestive heart failure.
--- NOTE | 2017-07-18 15:46 | CP.PCM.CON ---
History of Present Illness - History of Present Illness History of Present Illness: Patient is a 87 year old male with history of A fib on Coumadin (2mg MWF, 1mg TTS), HTN, DM, CAD, Parkinson's, CHF, CKD-stage 3 who was [facility] on 07/16/17 for complaints of shortness of breath. He reports that it was his birthday and he was enjoying the day with his family when he suddenly felt short of breath. alf reportedly found him hypoxic and tachypneic with no fever. On admission, he was febrile and initial CXR revealed prominent bibasilar airspace opacities, small bilateral pleural effusions,diffuse increased interstistial lung markings, biapical pleural thickening. Today, he reports that he feels that he is able to breathe well and denies feeling short of breath. Reports he has a cough productive of green sputum, hasn 't been able to expectorate a lot. Denies chest pain, fever, chills, headache, palpitations, nausea, vomiting, diarrhea, leg pain. He states he has never had any major issues with his lungs and has never had to use oxygen before. PMH: Type II DM, CAD, Parkinson's, Atrial fibrillation, CHF, CKD-Stage 3 PSH: coronary stents x3 (1995, 2005, 2008), hemicolectomy s/p colon cancer (3 years ago) Social hx: uses a motorized wheelchair. walks with walker with physical therapist. Hx of smoking - smoked 1ppd x50 years, quit 10 years ago completely. Denies ETOH or recreational drug use. lives in the [facility]. Meds: See MAR Allergies: NKDA ?Assessment and plan: 87 year old male with history of A fib on Coumadin (2mg MWF, 1mg TTS), HTN, DM, CAD, Parkinson's who was brought in from the [facility] to the ED on 07/16/17 for complaints of shortness of breath. Pulmonology consulted for hypoxia and possible COPD. Viral respiratory infection, Influenza Positive for Influenza A CXR 07/16/17: prominent bibasilar airspace opacities. small bilateral pleural effusions. diffuse increased interstistial lung markings. biapical pleural thickening, cardiomegaly. CT Chest: Dense coronary artery calcifications. Right peritracheal lymph node measures approximately 10 mm in short axis. Additional sub cm mediastinal lymph nodes, nonspecific. Mild pulmonary venous congestion. Small bilateral pleural effusions and associated consolidations. 6 mm spiculated nodular density in the right upper lobe. Recommend [address] follow-up. Limited visualized upper abdomen: Cholelithiasis. Too small to characterize partially imaged renal hypodensities, possibly cysts. Large partially imaged fat containing ventral hernia. CXR 07/18/17: improving CHF ECHO: The left ventricle is moderately dilated with possible borderline to mild concentric hypertrophy. there is global hypokinesis of the left ventricle. the systolic function is moderately impaired. The EF is 35-40%. moderate diastolic dysfunction. Transmitral doppler flow pattern is Grade II-pseudonormal filling dynamics. Elevated left atrial pressure. the right ventricular systolic fucntion is normal. mitral regurgitation is mild. there is mild tricuspid regurgitation. right ventricular systolic pressure is estimated at 43mmHg, compatible with mild pulmonary HTN. there is no gross pericardial effusion. 07/16 VBG pH 7.27 pO2 56 pCO2 48 HCO3 20.6 Vanco trough 10.8 Blood cultures pending. Continue meds: Albuterol/Tiotropium 3cc INH RQ6 Mucinex 600mg PO BID Tamiflu 75mg PO daily x5 days (renally dosed since pt has hx of CKD-Stage3) Zosyn 2.25 g IV (renally dosed since pt has hx of CKD-stage 3) Phenergan ?/codeine 5ml PO Q4 PRN Past Patient History - Infectious Disease Hx of Infectious Diseases: None - Tetanus Immunizations Tetanus Immunization: Unknown - Past Medical History & Family History Past Medical History?: Yes - Past Social History Smoking Status: Former Smoker - CARDIAC Hx Cardiac Disorders: Yes (AFIB) Hx Hypertension: Yes - PULMONARY Hx Respiratory Disorders: No - NEUROLOGICAL Hx Parkinson's Disease: Yes - HEENT Hx HEENT Problems: No - RENAL Other/Comment: Renal Insufficiency - ENDOCRINE/METABOLIC Hx Diabetes Mellitus Type 2: Yes - HEMATOLOGICAL/ONCOLOGICAL Hx Anemia: Yes - INTEGUMENTARY Hx Dermatological Problems: No - MUSCULOSKELETAL/RHEUMATOLOGICAL Hx Arthritis: Yes (B/L KNEES) - GASTROINTESTINAL Hx Gastrointestinal Disorders: No - GENITOURINARY/GYNECOLOGICAL Hx Genitourinary Disorders: Yes (Frequency, dribbling) - PSYCHIATRIC Hx Depression: No Hx Substance Use: No - SURGICAL HISTORY Hx Coronary Stent: Yes - ANESTHESIA Hx Anesthesia Reactions: No Hx Malignant Hyperthermia: No Meds Allergies/Adverse Reactions: Allergies Allergy/AdvReac Type Severity Reaction Status Date / Time No Known Allergies Allergy Verified 07/16/17 20:59 - Medications Medications: Current Medications Albuterol/Ipratropium (Duoneb 3 Mg/0.5 Mg (3 Ml) Ud) 3 ml INH Q4H [facility] Carbidopa/Levodopa (Sinemet) 1 tab PO QID [facility] Last Admin: 07/18/17 14:29 Dose: 1 tab Docusate Sodium (Colace) 100 mg PO HS [facility] Last Admin: 07/17/17 21:45 Dose: 100 mg Famotidine (Pepcid) 20 mg PO DAILY [facility] Last Admin: 07/18/17 09:23 Dose: 20 mg Gabapentin (Neurontin) 100 mg PO BID [facility] Last Admin: 07/18/17 09:23 Dose: 100 mg Guaifenesin (Mucinex La) 600 mg PO BID [facility] Last Admin: 07/18/17 09:23 Dose: 600 mg Piperacillin Sod/Tazobactam Sod (Zosyn 2.25 Gm Iv Premix) 2.25 gm in 50 mls @ 100 mls/hr IVPB Q8H [facility] Last Admin: 07/18/17 10:47 Dose: 100 mls/hr Insulin Human Regular (Novolin R) 0 unit SC ACHS [facility] PRN Reason: Protocol Last Admin: 07/18/17 12:24 Dose: Not Given Metoprolol Succinate (Toprol Xl) 50 mg PO DAILY [facility] Last Admin: 07/18/17 10:47 Dose: Not Given Oseltamivir Phosphate (Tamiflu Susp) 30 mg PO DAILY [facility] Stop: 07/22/17 02:25 Promethazine HCl/Codeine (Phenergan/Codeine Oral Syrup) 5 ml PO Q4 PRN PRN Reason: Cough Last Admin: 07/18/17 14:50 Dose: 5 ml Rosuvastatin Calcium (Crestor) 10 mg PO [facility] Saccharomyces Boulardii (Florastor) 250 mg PO BID [facility] Last Admin: 07/18/17 09:23 Dose: 250 mg Tamsulosin HCl (Flomax) 0.4 mg PO DAILY [facility] Last Admin: 07/18/17 10:53 Dose: 0.4 mg Timolol Maleate (Timoptic 0.5% Ophth Soln) 1 drop OU BID [facility] Last Admin: 07/18/17 09:25 Dose: 1 drop Warfarin Sodium (Coumadin) 2 mg PO ONCE ONE Stop: 07/18/17 18:01 Results - Vital Signs Recent Vital Signs: Last Vital Signs Temp 97.5 F L 07/18/17 08:25 Pulse 59 L 07/18/17 08:25 Resp 20 07/18/17 08:25 BP 149/66 07/18/17 08:25 Pulse Ox 95 07/18/17 08:25 - Labs Result Diagrams: 07/18/17 07:51 07/18/17 07:51 Labs: Laboratory Results - last 24 hr 07/17/17 07/17/17 07/17/17 16:34 18:10 18:59 WBC RBC Hgb Hct MCV MCH MCHC RDW Plt Count MPV Neut % (Auto) Lymph % (Auto) Schleicher % (Auto) Eos % (Auto) Baso % (Auto) Neut # Lymph # Schleicher # Eos # Baso # PT 19.8 H D INR 1.7 D Puncture Site pCO2 pO2 HCO3 ABG pH ABG Total CO2 ABG O2 Saturation ABG Base Excess Jonny Test ABG Potassium Glucose Lactate Liter Flow Sodium Potassium Chloride Carbon Dioxide Anion Gap BUN Creatinine Est GFR ( Amer) Est GFR (Non-Af Amer) POC Glucose (mg/dL) 114 H Random Glucose Calcium Phosphorus Magnesium Total Bilirubin AST ALT Alkaline Phosphatase Total Protein Albumin Globulin Albumin/Globulin Ratio Arterial Blood Potassium Urine Color Yellow Urine Clarity Clear Urine pH 5.0 Ur Specific [place] 1.016 Urine Protein 2+ H Urine Glucose (UA) Normal Urine Ketones Negative Urine Blood Negative Urine Nitrate Negative Urine Bilirubin Negative Urine Urobilinogen Normal Ur Leukocyte Esterase Neg Urine WBC (Auto) 1 Urine RBC (Auto) 2 Ur Squamous Epith Cells 1 Ur Transition Epith Cell < 1 Urine Bacteria Rare Hyaline Casts 3-5 H Vancomycin Trough Random Vancomycin 07/17/17 07/18/17 07/18/17 20:54 06:06 07:51 WBC RBC Hgb Hct MCV MCH MCHC RDW Plt Count MPV Neut % (Auto) Lymph % (Auto) Schleicher % (Auto) Eos % (Auto) Baso % (Auto) Neut # Lymph # Schleicher # Eos # Baso # PT INR Puncture Site pCO2 pO2 HCO3 ABG pH ABG Total CO2 ABG O2 Saturation ABG Base Excess Jonny Test ABG Potassium Glucose Lactate Liter Flow Sodium Potassium Chloride Carbon Dioxide Anion Gap BUN Creatinine Est GFR ( Amer) Est GFR (Non-Af Amer) POC Glucose (mg/dL) 125 H 104 Random Glucose Calcium Phosphorus Magnesium Total Bilirubin AST ALT Alkaline Phosphatase Total Protein Albumin Globulin Albumin/Globulin Ratio Arterial Blood Potassium Urine Color Urine Clarity Urine pH Ur Specific [place] Urine Protein Urine Glucose (UA) Urine Ketones Urine Blood Urine Nitrate Urine Bilirubin Urine Urobilinogen Ur Leukocyte Esterase Urine WBC (Auto) Urine RBC (Auto) Ur Squamous Epith Cells Ur Transition Epith Cell Urine Bacteria Hyaline Casts Vancomycin Trough 10.8 H Random Vancomycin 07/18/17 07/18/17 07/18/17 07:51 07:51 07:51 WBC 3.6 L RBC 4.27 L Hgb 12.1 Hct 37.2 MCV 87.1 MCH 28.4 MCHC 32.6 L RDW 15.6 H Plt Count 121 L MPV 9.6 Neut % (Auto) 45.2 L Lymph % (Auto) 30.0 Schleicher % (Auto) 16.5 H Eos % (Auto) 7.3 H Baso % (Auto) 1.0 Neut # 1.6 L Lymph # 1.1 Schleicher # 0.6 Eos # 0.3 Baso # 0.0 PT 18.6 H INR 1.6 Puncture Site pCO2 pO2 HCO3 ABG pH ABG Total CO2 ABG O2 Saturation ABG Base Excess Jonny Test ABG Potassium Glucose Lactate Liter Flow Sodium 137 Potassium 4.8 Chloride 103 Carbon Dioxide 29 Anion Gap 10 BUN 40 H Creatinine 2.4 H Est GFR ( Amer) 31 Est GFR (Non-Af Amer) 26 POC Glucose (mg/dL) Random Glucose 97 Calcium 7.8 L Phosphorus 3.5 Magnesium 1.9 Total Bilirubin 1.0 AST 21 ALT 13 L D Alkaline Phosphatase 61 Total Protein 6.4 Albumin 3.4 L Globulin 3.0 Albumin/Globulin Ratio 1.1 Arterial Blood Potassium Urine Color Urine Clarity Urine pH Ur Specific [place] Urine Protein Urine Glucose (UA) Urine Ketones Urine Blood Urine Nitrate Urine Bilirubin Urine Urobilinogen Ur Leukocyte Esterase Urine WBC (Auto) Urine RBC (Auto) Ur Squamous Epith Cells Ur Transition Epith Cell Urine Bacteria Hyaline Casts Vancomycin Trough Random Vancomycin 07/18/17 07/18/17 07/18/17 10:30 11:21 12:28 WBC RBC Hgb Hct MCV MCH MCHC RDW Plt Count MPV Neut % (Auto) Lymph % (Auto) Schleicher % (Auto) Eos % (Auto) Baso % (Auto) Neut # Lymph # Schleicher # Eos # Baso # PT INR Puncture Site [place] pCO2 40 pO2 139 H HCO3 24.0 ABG pH 7.38 ABG Total CO2 24.9 ABG O2 Saturation 99.3 H ABG Base Excess -1.3 Jonny Test Pos ABG Potassium 4.1 Glucose 167 H Lactate 1.4 Liter Flow 6.0 Sodium 140.0 Potassium Chloride 111.0 H Carbon Dioxide Anion Gap BUN Creatinine Est GFR ( Amer) Est GFR (Non-Af Amer) POC Glucose (mg/dL) 150 H Random Glucose Calcium Phosphorus Magnesium Total Bilirubin AST ALT Alkaline Phosphatase Total Protein Albumin Globulin Albumin/Globulin Ratio Arterial Blood Potassium 4.1 Urine Color Urine Clarity Urine pH Ur Specific [place] Urine Protein Urine Glucose (UA) Urine Ketones Urine Blood Urine Nitrate Urine Bilirubin Urine Urobilinogen Ur Leukocyte Esterase Urine WBC (Auto) Urine RBC (Auto) Ur Squamous Epith Cells Ur Transition Epith Cell Urine Bacteria Hyaline Casts Vancomycin Trough Random Vancomycin 9.98
[2017-07-18] MEDS: Albuterol-Ipratrop 3 mg / 0.5 (3 ml) UD INH SCH ×2 (16:15→19:40)
[2017-07-19] MEDS: Piperacill/Tazo 2.25gm in Dex 2.25 GM/50 ML BAG IVPB SCH ×3 (01:16→17:26)
[2017-07-19] MEDS: Albuterol-Ipratrop 3 mg / 0.5 (3 ml) UD INH SCH ×7 (02:22→23:45)
[2017-07-19] MEDS: (Novolin R) Insulin Human Regular 100 units/ml vial SC SCH ×4 (08:10→21:40)
[2017-07-19] MEDS: Promethazine/Cod 6.25mg-10mg/5ml Syr UD PO PRN (09:07)
[2017-07-19] MEDS: Saccharomyces Boulardi 250 mg Cap PO SCH ×2 (09:08→17:27)
[2017-07-19] MEDS: guaiFENesin 600 mg ER Tab PO SCH ×2 (09:08→17:28)
[2017-07-19] MEDS: Metoprolol Succinate 50 mg XL Tab PO SCH (09:08)
[2017-07-19] MEDS: Carbidopa/Levodopa 25/250 PO SCH ×4 (09:08→21:10)
[2017-07-19] MEDS: Oseltamivir 6 MG/ML PO SCH (09:12)
[2017-07-19 11:24] LABS: BASO % 0.5 % (0.0-2.0); EOS # 0.2 K/uL (0.0-0.7); EOS % 6.2 % (0.0-4.0); HEMOGLOBIN 11.5 g/dL (12.0-18.0); LYMPH # 0.8 K/uL (1.0-4.3); LYMPH % 25.6 % (20.0-40.0); MEAN CELL VOLUME 86.6 fL (80.0-94.0); MEAN CORPUSCULAR HEMOGLOBIN 28.5 pg (27.0-31.0); MEAN CORPUSCULAR HGB CONC 32.9 g/dL (33.0-37.0); MEAN PLATELET VOLUME 9.4 fL (7.2-11.7); MONO # 0.4 K/uL (0.0-0.8); MONO % 11.6 % (0.0-10.0); NEUT # 1.7 K/uL (1.8-7.0); NEUT % 56.1 % (50.0-75.0); RBC 4.02 Mil/uL (4.40-5.90); RED CELL DISTRIBUTION WIDTH 15.4 % (11.5-14.5)
[2017-07-19 11:37] LABS: INR 1.7; PROTHROMBIN TIME 20.3 SECONDS (9.7-12.2)
[2017-07-19 11:49] LABS: ALB/GLOB RATIO 1.1 (1.0-2.1); ALBUMIN 3.3 g/dL (3.5-5.0); CALCIUM 7.7 mg/dl (8.6-10.4); MAGNESIUM 1.7 mg/dL (1.6-2.3)
--- NOTE | 2017-07-19 13:48 | CP.PCM.CON ---
History of Present Illness - History of Present Illness History of Present Illness: dictated Past Patient History - Infectious Disease Hx of Infectious Diseases: None - Tetanus Immunizations Tetanus Immunization: Unknown - Past Medical History & Family History Past Medical History?: Yes - Past Social History Smoking Status: Former Smoker - CARDIAC Hx Cardiac Disorders: Yes (AFIB) Hx Hypertension: Yes - PULMONARY Hx Respiratory Disorders: No - NEUROLOGICAL Hx Parkinson's Disease: Yes - HEENT Hx HEENT Problems: No - RENAL Other/Comment: Renal Insufficiency - ENDOCRINE/METABOLIC Hx Diabetes Mellitus Type 2: Yes - HEMATOLOGICAL/ONCOLOGICAL Hx Anemia: Yes - INTEGUMENTARY Hx Dermatological Problems: No - MUSCULOSKELETAL/RHEUMATOLOGICAL Hx Arthritis: Yes (B/L KNEES) - GASTROINTESTINAL Hx Gastrointestinal Disorders: No - GENITOURINARY/GYNECOLOGICAL Hx Genitourinary Disorders: Yes (Frequency, dribbling) - PSYCHIATRIC Hx Depression: No Hx Substance Use: No - SURGICAL HISTORY Hx Coronary Stent: Yes - ANESTHESIA Hx Anesthesia Reactions: No Hx Malignant Hyperthermia: No Meds Allergies/Adverse Reactions: Allergies Allergy/AdvReac Type Severity Reaction Status Date / Time No Known Allergies Allergy Verified 07/16/17 20:59 - Medications Medications: Current Medications Albuterol/Ipratropium (Duoneb 3 Mg/0.5 Mg (3 Ml) Ud) 3 ml INH Q4H [facility] Last Admin: 07/19/17 11:39 Dose: 3 ml Carbidopa/Levodopa (Sinemet) 1 tab PO QID [facility] Last Admin: 07/19/17 09:08 Dose: 1 tab Docusate Sodium (Colace) 100 mg PO HS [facility] Last Admin: 07/18/17 21:24 Dose: 100 mg Enoxaparin Sodium (Lovenox) 90 mg SC Q12 [facility] Famotidine (Pepcid) 20 mg PO DAILY [facility] Last Admin: 07/19/17 09:08 Dose: 20 mg Gabapentin (Neurontin) 100 mg PO BID [facility] Last Admin: 07/19/17 09:08 Dose: 100 mg Guaifenesin (Mucinex La) 600 mg PO BID [facility] Last Admin: 07/19/17 09:08 Dose: 600 mg Piperacillin Sod/Tazobactam Sod (Zosyn 2.25 Gm Iv Premix) 2.25 gm in 50 mls @ 100 mls/hr IVPB Q8H [facility] Last Admin: 07/19/17 09:07 Dose: 100 mls/hr Insulin Human Regular (Novolin R) 0 unit SC ACHS [facility] PRN Reason: Protocol Last Admin: 07/19/17 11:52 Dose: 1 unit Metoprolol Succinate (Toprol Xl) 50 mg PO DAILY [facility] Last Admin: 07/19/17 09:08 Dose: 50 mg Oseltamivir Phosphate (Tamiflu Susp) 30 mg PO DAILY [facility] Stop: 07/22/17 02:25 Last Admin: 07/19/17 09:12 Dose: 30 mg Promethazine HCl/Codeine (Phenergan/Codeine Oral Syrup) 5 ml PO Q4 PRN PRN Reason: Cough Last Admin: 07/19/17 09:07 Dose: 5 ml Rosuvastatin Calcium (Crestor) 10 mg PO HS [facility] Last Admin: 07/18/17 21:24 Dose: 10 mg Saccharomyces Boulardii (Florastor) 250 mg PO BID [facility] Last Admin: 07/19/17 09:08 Dose: 250 mg Tamsulosin HCl (Flomax) 0.4 mg PO DAILY [facility] Last Admin: 07/19/17 09:08 Dose: 0.4 mg Timolol Maleate (Timoptic 0.5% Oph Soln) 1 drop OU BID [facility] Last Admin: 07/19/17 09:08 Dose: 1 drop Warfarin Sodium (Coumadin) 2 mg PO ONCE ONE Stop: 07/19/17 18:01 Results - Vital Signs Recent Vital Signs: Last Vital Signs Temp 98.5 F 07/19/17 07:35 Pulse 58 L 07/19/17 09:00 Resp 20 07/19/17 07:35 BP 158/73 H 07/19/17 07:35 Pulse Ox 98 07/18/17 23:25 - Labs Result Diagrams: 07/19/17 11:14 07/19/17 11:14 Labs: Laboratory Results - last 24 hr 07/18/17 07/18/17 07/18/17 12:28 16:15 21:10 WBC RBC Hgb Hct MCV MCH MCHC RDW Plt Count MPV Neut % (Auto) Lymph % (Auto) [place] % (Auto) Eos % (Auto) Baso % (Auto) Neut # Lymph # [place] # Eos # Baso # Differential Comment PT INR Sodium Potassium Chloride Carbon Dioxide Anion Gap BUN Creatinine Est GFR ( Amer) Est GFR (Non-Af Amer) POC Glucose (mg/dL) 110 168 H Random Glucose Calcium Phosphorus Magnesium Total Bilirubin AST ALT Alkaline Phosphatase Total Protein Albumin Globulin Albumin/Globulin Ratio Procalcitonin 6.26 H 07/19/17 07/19/17 07/19/17 06:17 11:14 11:14 WBC 3.0 L RBC 4.02 L Hgb 11.5 L Hct 34.8 L MCV 86.6 MCH 28.5 MCHC 32.9 L RDW 15.4 H Plt Count 109 L MPV 9.4 Neut % (Auto) 56.1 Lymph % (Auto) 25.6 [place] % (Auto) 11.6 H Eos % (Auto) 6.2 H Baso % (Auto) 0.5 Neut # 1.7 L Lymph # 0.8 L [place] # 0.4 Eos # 0.2 Baso # 0.0 Differential Comment PT INR Sodium 133 Potassium 4.5 Chloride 102 Carbon Dioxide 25 Anion Gap 10 BUN 33 H Creatinine 2.1 H Est GFR ( Amer) 36 Est GFR (Non-Af Amer) 30 POC Glucose (mg/dL) 104 Random Glucose 196 H Calcium 7.7 L Phosphorus 3.1 Magnesium 1.7 Total Bilirubin 0.7 AST 22 ALT 14 L Alkaline Phosphatase 61 Total Protein 6.4 Albumin 3.3 L Globulin 3.1 Albumin/Globulin Ratio 1.1 Procalcitonin 07/19/17 07/19/17 11:14 11:24 WBC RBC Hgb Hct MCV MCH MCHC RDW Plt Count MPV Neut % (Auto) Lymph % (Auto) [place] % (Auto) Eos % (Auto) Baso % (Auto) Neut # Lymph # [place] # Eos # Baso # Differential Comment PT 20.3 H INR 1.7 Sodium Potassium Chloride Carbon Dioxide Anion Gap BUN Creatinine Est GFR ( Amer) Est GFR (Non-Af Amer) POC Glucose (mg/dL) 167 H Random Glucose Calcium Phosphorus Magnesium Total Bilirubin AST ALT Alkaline Phosphatase Total Protein Albumin Globulin Albumin/Globulin Ratio Procalcitonin
--- NOTE | 2017-07-19 15:47 | CP.PCM.PN ---
Subjective - Date & Time of Evaluation Date of Evaluation: 07/19/17 Time of Evaluation: 11:10 - Subjective Subjective: Patient seen and examined at bedside. He is sitting in a chair out of bed. He states he feels his breathing is fine and states that he no longer feels short of breath. He states that his cough is still present but doesn't bother him as much. He denies chest pain, headache, abdominal pain, leg pain, nausea, vomiting. He would like to know if he can take his nasal cannula off and would like to go back to the residential. ?Assessment and plan: 87 year old male with history of A fib on Coumadin (2mg MWF, 1mg TTS), HTN, DM, CAD, Parkinson's who was brought in from the residential to the ED on 07/16/17 for complaints of shortness of breath. Pulmonology consulted for hypoxia and possible COPD. Viral respiratory infection, Influenza Positive for Influenza A CXR 07/16/17: prominent bibasilar airspace opacities. small bilateral pleural effusions. diffuse increased interstistial lung markings. biapical pleural thickening, cardiomegaly. CT Chest: Dense coronary artery calcifications. Right peritracheal lymph node measures approximately 10 mm in short axis. Additional sub cm mediastinal lymph nodes, nonspecific. Mild pulmonary venous congestion. Small bilateral pleural effusions and associated consolidations. 6 mm spiculated nodular density in the right upper lobe. Recommend [address] follow-up. Limited visualized upper abdomen: Cholelithiasis. Too small to characterize partially imaged renal hypodensities, possibly cysts. Large partially imaged fat containing ventral hernia. CXR 07/18/17: improving CHF ECHO: The left ventricle is moderately dilated with possible borderline to mild concentric hypertrophy. there is global hypokinesis of the left ventricle. the systolic function is moderately impaired. The EF is 35-40%. moderate diastolic dysfunction. Transmitral doppler flow pattern is Grade II-pseudonormal filling dynamics. Elevated left atrial pressure. the right ventricular systolic fucntion is normal. mitral regurgitation is mild. there is mild tricuspid regurgitation. right ventricular systolic pressure is estimated at 43mmHg, compatible with mild pulmonary HTN. there is no gross pericardial effusion. 07/16 VBG pH 7.27 pO2 56 pCO2 48 HCO3 20.6 Vanco trough 10.8 Blood cultures pending. Urine culture negative Procalcitonin 6.26 Continue meds: Albuterol/Tiotropium 3cc INH RQ6 Mucinex 600mg PO BID Tamiflu 30mg PO daily x5 days (renally dosed since pt has hx of CKD-Stage3) Zosyn 2.25 g IV (renally dosed since pt has hx of CKD-stage 3) Phenergan ?/codeine 5ml PO Q4 PRN ? Objective - Vital Signs/Intake and Output Vital Signs (last 24 hours): Temp Pulse Resp BP Pulse Ox 98.5 F 58 L 20 158/73 H 98 07/19/17 07:35 07/19/17 09:00 07/19/17 07:35 07/19/17 07:35 07/18/17 23:25 Intake and Output: 07/19/17 07/19/17 06:59 18:59 Intake Total 290 Balance 290 - Medications Medications: Current Medications Albuterol/Ipratropium (Duoneb 3 Mg/0.5 Mg (3 Ml) Ud) 3 ml INH Q4H [facility] Last Admin: 07/19/17 15:44 Dose: 3 ml Carbidopa/Levodopa (Sinemet) 1 tab PO QID [facility] Last Admin: 07/19/17 14:11 Dose: 1 tab Docusate Sodium (Colace) 100 mg PO HS [facility] Last Admin: 07/18/17 21:24 Dose: 100 mg Enoxaparin Sodium (Lovenox) 90 mg SC Q12 [facility] Famotidine (Pepcid) 20 mg PO DAILY [facility] Last Admin: 07/19/17 09:08 Dose: 20 mg Gabapentin (Neurontin) 100 mg PO BID [facility] Last Admin: 07/19/17 09:08 Dose: 100 mg Guaifenesin (Mucinex La) 600 mg PO BID [facility] Last Admin: 07/19/17 09:08 Dose: 600 mg Piperacillin Sod/Tazobactam Sod (Zosyn 2.25 Gm Iv Premix) 2.25 gm in 50 mls @ 100 mls/hr IVPB Q8H [facility] Last Admin: 07/19/17 09:07 Dose: 100 mls/hr Insulin Human Regular (Novolin R) 0 unit SC ACHS [facility] PRN Reason: Protocol Last Admin: 07/19/17 11:52 Dose: 1 unit Metoprolol Succinate (Toprol Xl) 50 mg PO DAILY [facility] Last Admin: 07/19/17 09:08 Dose: 50 mg Oseltamivir Phosphate (Tamiflu Susp) 30 mg PO DAILY [facility] Stop: 07/22/17 02:25 Last Admin: 07/19/17 09:12 Dose: 30 mg Promethazine HCl/Codeine (Phenergan/Codeine Oral Syrup) 5 ml PO Q4 PRN PRN Reason: Cough Last Admin: 07/19/17 09:07 Dose: 5 ml Rosuvastatin Calcium (Crestor) 10 mg PO HS [facility] Last Admin: 07/18/17 21:24 Dose: 10 mg Saccharomyces Boulardii (Florastor) 250 mg PO BID [facility] Last Admin: 07/19/17 09:08 Dose: 250 mg Tamsulosin HCl (Flomax) 0.4 mg PO DAILY [facility] Last Admin: 07/19/17 09:08 Dose: 0.4 mg Timolol Maleate (Timoptic 0.5% [facility] Soln) 1 drop OU BID [facility] Last Admin: 07/19/17 09:08 Dose: 1 drop Warfarin Sodium (Coumadin) 2 mg PO ONCE ONE Stop: 07/19/17 18:01 - Labs Labs: 07/19/17 11:14 07/19/17 11:14 PT 20.3 SECONDS (9.7-12.2) H 07/19/17 11:14 INR 1.7 07/19/17 11:14 APTT 37 SECONDS (21-34) H 07/16/17 21:06
--- NOTE | 2017-07-19 17:22 | CP.PCM.PN ---
Subjective - Date & Time of Evaluation Date of Evaluation: 07/19/17 Time of Evaluation: 07:00 - Subjective Subjective: Medicine Progress Note: Patient was seen and examined at bedside in the AM. Per nurse no acute events overnight. Patient states he is feeling much better. He denies shortness of breath, chest pain, palpitations, nausea, vomiting, diarrhea a or constipation. Objective - Vital Signs/Intake and Output Vital Signs (last 24 hours): Temp Pulse Resp BP Pulse Ox 97.9 F 61 20 151/75 H 97 07/19/17 16:04 07/19/17 16:15 07/19/17 16:04 07/19/17 16:04 07/19/17 16:04 Intake and Output: 07/19/17 07/19/17 06:59 18:59 Intake Total 290 Balance 290 - Medications Medications: Current Medications Albuterol/Ipratropium (Duoneb 3 Mg/0.5 Mg (3 Ml) Ud) 3 ml INH Q4H [facility] Last Admin: 07/19/17 15:44 Dose: 3 ml Carbidopa/Levodopa (Sinemet) 1 tab PO QID [facility] Last Admin: 07/19/17 14:11 Dose: 1 tab Docusate Sodium (Colace) 100 mg PO HS [facility] Last Admin: 07/18/17 21:24 Dose: 100 mg Enoxaparin Sodium (Lovenox) 90 mg SC Q12 [facility] Famotidine (Pepcid) 20 mg PO DAILY [facility] Last Admin: 07/19/17 09:08 Dose: 20 mg Gabapentin (Neurontin) 100 mg PO BID [facility] Last Admin: 07/19/17 09:08 Dose: 100 mg Guaifenesin (Mucinex La) 600 mg PO BID [facility] Last Admin: 07/19/17 09:08 Dose: 600 mg Piperacillin Sod/Tazobactam Sod (Zosyn 2.25 Gm Iv Premix) 2.25 gm in 50 mls @ 100 mls/hr IVPB Q8H [facility] Last Admin: 07/19/17 09:07 Dose: 100 mls/hr Insulin Human Regular (Novolin R) 0 unit SC ACHS [facility] PRN Reason: Protocol Last Admin: 07/19/17 11:52 Dose: 1 unit Metoprolol Succinate (Toprol Xl) 50 mg PO DAILY [facility] Last Admin: 07/19/17 09:08 Dose: 50 mg Oseltamivir Phosphate (Tamiflu Susp) 30 mg PO DAILY [facility] Stop: 07/22/17 02:25 Last Admin: 07/19/17 09:12 Dose: 30 mg Promethazine HCl/Codeine (Phenergan/Codeine Oral Syrup) 5 ml PO Q4 PRN PRN Reason: Cough Last Admin: 07/19/17 09:07 Dose: 5 ml Rosuvastatin Calcium (Crestor) 10 mg PO HS [facility] Last Admin: 07/18/17 21:24 Dose: 10 mg Saccharomyces Boulardii (Florastor) 250 mg PO BID [facility] Last Admin: 07/19/17 09:08 Dose: 250 mg Tamsulosin HCl (Flomax) 0.4 mg PO DAILY [facility] Last Admin: 07/19/17 09:08 Dose: 0.4 mg Timolol Maleate (Timoptic 0.5% Ophth Soln) 1 drop OU BID [facility] Last Admin: 07/19/17 09:08 Dose: 1 drop Warfarin Sodium (Coumadin) 2 mg PO ONCE ONE Stop: 07/19/17 18:01 - Labs Labs: 07/19/17 11:14 07/19/17 11:14 PT 20.3 SECONDS (9.7-12.2) H 07/19/17 11:14 INR 1.7 07/19/17 11:14 APTT 37 SECONDS (21-34) H 07/16/17 21:06 - Constitutional Appears: No Acute Distress - Head Exam Head Exam: ATRAUMATIC, NORMAL INSPECTION - Eye Exam Eye Exam: EOMI, Normal appearance - ENT Exam ENT Exam: Mucous Membranes Moist - Respiratory Exam Respiratory Exam: Rales, NORMAL BREATHING PATTERN. absent: Clear to Ausculation Bilateral - Cardiovascular Exam Cardiovascular Exam: REGULAR RHYTHM, +S1, +S2 - GI/Abdominal Exam GI & Abdominal Exam: Soft, Normal Bowel Sounds. absent: Tenderness - Extremities Exam Extremities Exam: Normal Inspection - Neurological Exam Neurological Exam: Alert, Awake, Oriented x3 - Psychiatric Exam Psychiatric exam: Normal Affect, Normal Mood - Skin Skin Exam: Normal Color, Warm Assessment and Plan - Assessment and Plan (Free Text) Assessment: 87 y/o male, with a Hx of AFib, HTN, DM, Parkinson's Disease, and Dementia who [facility] of SOB. 1.) Hypoxic possibly secondary to pneumonia - resolved - Not in distress - 3L of NC saturation 97% - ABG within normal limits - Lactate 1.4 - Pulm Consult: Dr. Lloyd --> help appreciated - ID Consult: Dr. Thornton --> help appreciated - Imaging CT Chest: Dense coronary artery calcifications. Right peritracheal lymph node measures approximately 10 mm in short axis. Additional sub cm mediastinal lymph nodes, nonspecific. Mild pulmonary venous congestion. Small bilateral pleural effusions and associated consolidations. 6 mm spiculated nodular density in the right upper lobe. Recommend [address] follow-up. Limited visualized upper abdomen: Cholelithiasis. Too small to characterize partially imaged renal hypodensities, possibly cysts. Large partially imaged fat containing ventral hernia. X-ray (07/18/17): Improving congestive heart failure. - Blood culture negative - preliminary - Medications * Duoneb q4h * Zosyn started 07/16/17; Zosyn dose changed to 2.25gm on 07/18/17 2.) Influenza Type A - Febrile on admission; currently afebrile, no leukocytosis - Imaging: CXR: Questionable infiltrates CT Chest: Dense coronary artery calcifications. Right peritracheal lymph node measures approximately 10 mm in short axis. Additional sub cm mediastinal lymph nodes, nonspecific. Mild pulmonary venous congestion. Small bilateral pleural effusions and associated consolidations. 6 mm spiculated nodular density in the right upper lobe. Recommend [address] follow-up. Limited visualized upper abdomen: Cholelithiasis. Too small to characterize partially imaged renal hypodensities, possibly cysts. Large partially imaged fat containing ventral hernia. - Medications: * Zosyn started 07/16/17; Zosyn dose changed to 2.25gm on 07/18/17 * Vancomycin started 07/16/17 - discontinued 07/18/17 * Vanco Trogh 10.8 * Random Vanco 9.98 * Tamiflu 30mg PO daily x 5 days (renally dosed) started 07/16/17 - Procalcitonin: 6.26 - ID Consult: Dr. Thornton --> help appreciated - f/u recommendations 3.) CKD Stage 3B - BUN/Cr: 40/2.4 - guzman catheter: Monitor I/Os - urine culture negative 4.) History of CHF - ECHO 2013 LVEF 28% - ECHO (07/17/17): LVEF 35-40%. The left ventricle is moderately dilated with possible borderline to mild concentric hypertrophy. There is global hypokinesis of the left ventricle. The systolic function is moderately impaired. The right ventricular systolic function is normal. Mitral regurgitation is mild. There is mild tricuspid regurgitation. Right ventricular systolic pressure is about 43mmHg compatible with mild pulmonary hypertension. There is no gross pericardial effusion. 5.) History AFib - Resumed home medications: Coumadin will need to be ordered daily. * Coumadin 2mg MWF * Coumadin 1mg STT - Current INR 1.7 - Monitor INR - Patient started on Lovenox 90mg SC daily 6.) History of DM - Accuchecks - HgbA1C: 6.8 - ISS- Low 7.) History of Hypertension - Resumed home medications: Metoprolol 50mg PO daily 8.) History of Parkinson's Disease 9.) History of Dementia - Resumed home medications: Sinemet daily 10.) Prophylaxis - GI PPX: Pepcid 20mg PO daily - DVT PPX: SCDs, Lovenox 90mg SC daily - PT/OT Case discussed with Dr. Prosper Chan PGY-1
[2017-07-19] MEDS ORDERED: Enoxaparin 100 mg Syringe SC SCH (22:00)
--- NOTE | 2017-07-20 01:03 | CON ---
DATE: HISTORY OF PRESENT ILLNESS: The patient is in isolation at this time and I am asked to evaluate him. He also was seen by the Pulmonary attending at this time. Patient is an 87-year-old male. He has a history of chronic atrial fibrillation, hypertension, diabetes, Parkinson's, coronary artery disease, and CHF. He also has chronic renal insufficiency, stage III, [facility] breath and he was enjoying his birthday, he says, and suddenly, he started to have shortness of breath and became hypoxic and tachypneic and was brought to the ER, and in the ER, they found bilateral airspace opacities, and also his flu swab for influenza A was positive and he was admitted. He says that he is feeling better and he denies any shortness of breath. He does have nasal O2 on; he did ask me for non-rebreathing. He has productive cough, greenish phlegm. He did say he used to smoke before, but he stopped. He denies any chest pain. No fever. No chills. No nausea, no vomiting. He does go to the bathroom for number 1 many times as he says he has prostate issues also. PAST MEDICAL HISTORY: Atrial fibrillation, diabetes, coronary artery disease, Parkinson's, CKD, and the prostate issues. PAST SURGICAL HISTORY: Significant for coronary stents and hemicolectomy. SOCIAL HISTORY: He walked with a walker with physical therapist when he was in the rehab. He smoked 50 pack years, quit 10 years ago. He denies any alcohol or drug abuse. [facility] and he wants to go [facility]. He is not allergic to any medicine. MEDICATIONS: Here, he is on albuterol. He is on Sinemet, Colace, Lovenox, Pepcid, Neurontin, Mucinex, insulin, Toprol-XL, Tamiflu, and he is on Zosyn. He did receive vancomycin before, but his creatinine was elevated and so it was discontinued. He is also on Phenergan and Crestor at this time. He is on timolol and he is also on Coumadin, but they need to follow the PT/INR daily if he is going to be on antibiotics for the pneumonia. REVIEW OF SYSTEMS: He is feeling a little better. He is on oxygen. He has wheezing. He does have a history of smoking in the past and he is with atrial fibrillation. Cardiac dominguez, he has had atrial fibrillation and he has coronary artery disease and history of CHF. Renal: He has CKD and he comes in with pulmonary issues now with , COPD, and viral pneumonia at this time and he is on IV antibiotics also. His procalcitonin level was 6 point something, so I think he does have active pneumonia going on along with influenza. He has an unsteady gait. He has a history of fall, musculoskeletal-dominguez. Gastrointestinal: He denies any symptoms. Genitourinary: He has frequency and dribbling at times. Psychiatric issues: He has no depression or substance abuse. ALLERGIES: HE HAS NO DRUG ALLERGIES. PHYSICAL EXAMINATION: GENERAL: He is awake. VITAL SIGNS: I find that his temperature is 98.5, he has a pulse of 57, blood pressure 158/73, and respirations are 20. HEENT: Head is atraumatic, normocephalic. Pupils are reactive to light. Eye movements are unremarkable. Tongue is moist. NECK: Supple. JVP is flat at this time. LUNGS: He does have wheeze bilaterally. HEART: S1 and S2 is regular. ABDOMEN: Soft, nontender. No guarding. No rigidity present. EXTREMITIES: Ankle edema bilaterally. No edema in the legs. LABORATORY DATA: Labs are noted, show that white count is 3.0, still influenza A is positive, hemoglobin is 11.5, hematocrit is 34.8, platelet count is 109, it dropped from 121 on 07/18. His chemistry shows sodium is 133, potassium 4.5, chloride is 102, CO2 is 25, anion gap is 10. creatinine is 2.1, BUN is 33, glucose is 167, and procalcitonin level was 6.26 before, so I would like to repeat it to see where we stand with it right now. Micro-dominguez, his blood and urine cultures are negative. A chest x-ray, which was done yesterday, shows improving congestive heart failure, so he could have been in congestive heart failure also, but he has flu. ASSESSMENT: He is an elderly male with renal failure, atrial fibrillation, diabetes, hypertension, and has a history of smoking before, may have chronic obstructive pulmonary disease. PLAN: So just at this time, I would continue Zosyn for now and Tamiflu, actually they made the Tamiflu 30 mg, we will continue that, and we will follow. We will need to check the procalcitonin and lactic acid and until they return normal, I will not clear him for discharge at this time. We will follow. Trinh Thornton MD
[2017-07-20] MEDS: Piperacill/Tazo 2.25gm in Dex 2.25 GM/50 ML BAG IVPB SCH ×3 (01:08→20:24)
[2017-07-20] MEDS: Albuterol-Ipratrop 3 mg / 0.5 (3 ml) UD INH SCH ×5 (03:09→19:55)
[2017-07-20 06:37] LABS: BASO % 0.4 % (0.0-2.0); EOS # 0.2 K/uL (0.0-0.7); EOS % 4.6 % (0.0-4.0); HEMOGLOBIN 11.3 g/dL (12.0-18.0); INR 1.7; LYMPH # 1.1 K/uL (1.0-4.3); LYMPH % 29.4 % (20.0-40.0); MEAN CELL VOLUME 85.6 fL (80.0-94.0); MEAN CORPUSCULAR HEMOGLOBIN 28.6 pg (27.0-31.0); MEAN CORPUSCULAR HGB CONC 33.4 g/dL (33.0-37.0); MONO # 0.4 K/uL (0.0-0.8); MONO % 10.3 % (0.0-10.0); NEUT % 55.3 % (50.0-75.0); NRBC % 0.1 % (0.0-2.0); PROTHROMBIN TIME 19.7 SECONDS (9.7-12.2); RBC 3.97 Mil/uL (4.40-5.90); RED CELL DISTRIBUTION WIDTH 15.5 % (11.5-14.5); WHITE BLOOD COUNT 3.6 K/uL (4.8-10.8)
[2017-07-20 06:54] LABS: ALB/GLOB RATIO 1.1 (1.0-2.1); ALBUMIN 3.2 g/dL (3.5-5.0); CALCIUM 8.1 mg/dl (8.6-10.4); MAGNESIUM 1.8 mg/dL (1.6-2.3)
[2017-07-20] MEDS: (Novolin R) Insulin Human Regular 100 units/ml vial SC SCH ×4 (08:47→22:05)
[2017-07-20] MEDS ORDERED: Heparin25000 units/250ml 1/2NS 25,000 UNITS/250 ML BAG IV PRN ×2 (09:30→13:23)
[2017-07-20] MEDS: Carbidopa/Levodopa 25/250 PO SCH ×4 (10:18→21:05)
[2017-07-20] MEDS: Saccharomyces Boulardi 250 mg Cap PO SCH ×2 (10:19→17:44)
[2017-07-20] MEDS: Metoprolol Succinate 50 mg XL Tab PO SCH (10:19)
[2017-07-20] MEDS: guaiFENesin 600 mg ER Tab PO SCH ×2 (10:19→17:44)
[2017-07-20] MEDS: Oseltamivir 6 MG/ML PO SCH (10:20)
[2017-07-20] MEDS ORDERED: Albuterol-Ipratrop 3 mg / 0.5 (3 ml) UD INH STA (13:18)
[2017-07-20] MEDS ORDERED: MethylPREDNISolone 40 mg Vial IV ONE (13:18)
--- NOTE | 2017-07-20 17:02 | CP.PCM.PN ---
Subjective - Date & Time of Evaluation Date of Evaluation: 07/20/17 Time of Evaluation: 08:20 - Subjective Subjective: Patient seen and examined at bedside. He is resting in bed comfortably. He states he feels his breathing is fine and states that he no longer feels short of breath. He states that his cough is still present but doesn't bother him as much. He denies fever, chills, chest pain, headache, abdominal pain, leg pain, nausea, vomiting. He would like to go back to the long-term. Assessment and plan: 87 year old male with history of A fib on Coumadin (2mg MWF, 1mg TTS), HTN, DM, CAD, Parkinson's who was brought in from the long-term to the ED on 07/16/17 for complaints of shortness of breath. Pulmonology consulted for hypoxia and possible COPD. Viral respiratory infection, Influenza 97% 2L via NC Positive for Influenza A CXR 07/16/17: prominent bibasilar airspace opacities. small bilateral pleural effusions. diffuse increased interstistial lung markings. biapical pleural thickening, cardiomegaly. CT Chest: Dense coronary artery calcifications. Right peritracheal lymph node measures approximately 10 mm in short axis. Additional sub cm mediastinal lymph nodes, nonspecific. Mild pulmonary venous congestion. Small bilateral pleural effusions and associated consolidations. 6 mm spiculated nodular density in the right upper lobe. Recommend [address] follow-up. Limited visualized upper abdomen: Cholelithiasis. Too small to characterize partially imaged renal hypodensities, possibly cysts. Large partially imaged fat containing ventral hernia. CXR 07/18/17: improving CHF ECHO: The left ventricle is moderately dilated with possible borderline to mild concentric hypertrophy. there is global hypokinesis of the left ventricle. the systolic function is moderately impaired. The EF is 35-40%. moderate diastolic dysfunction. Transmitral doppler flow pattern is Grade II-pseudonormal filling dynamics. Elevated left atrial pressure. the right ventricular systolic fucntion is normal. mitral regurgitation is mild. there is mild tricuspid regurgitation. right ventricular systolic pressure is estimated at 43mmHg, compatible with mild pulmonary HTN. there is no gross pericardial effusion. 07/16 VBG pH 7.27 pO2 56 pCO2 48 HCO3 20.6 Blood cultures pending. Urine culture negative Procalcitonin (07/18) 6.26 -> (07/19) 4.30 07/19 Lactic acid 1.6 Follow up with ID Dr. Norberto talley. Continue meds: Albuterol/Tiotropium 3cc INH RQ6 Mucinex 600mg PO BID Tamiflu 30mg PO daily x5 days (renally dosed since pt has hx of CKD-Stage3) Zosyn 2.25 g IV (renally dosed since pt has hx of CKD-stage 3) Phenergan /codeine 5ml PO Q4 PRN Objective - Vital Signs/Intake and Output Vital Signs (last 24 hours): Temp Pulse Resp BP Pulse Ox 98 F 65 18 157/76 H 97 07/20/17 08:30 07/20/17 16:50 07/20/17 08:30 07/20/17 13:33 07/20/17 08:30 Intake and Output: 07/20/17 07/20/17 06:59 18:59 Intake Total 500 Balance 500 - Medications Medications: Current Medications Albuterol/Ipratropium (Duoneb 3 Mg/0.5 Mg (3 Ml) Ud) 3 ml INH RQ4 [facility] Last Admin: 07/20/17 11:17 Dose: 3 ml Carbidopa/Levodopa (Sinemet) 1 tab PO QID [facility] Last Admin: 07/20/17 14:08 Dose: 1 tab Docusate Sodium (Colace) 100 mg PO HS [facility] Last Admin: 07/19/17 21:10 Dose: 100 mg Famotidine (Pepcid) 20 mg PO DAILY [facility] Last Admin: 07/20/17 10:19 Dose: 20 mg Gabapentin (Neurontin) 100 mg PO BID [facility] Last Admin: 07/20/17 10:19 Dose: 100 mg Guaifenesin (Mucinex La) 600 mg PO BID [facility] Last Admin: 07/20/17 10:19 Dose: 600 mg Piperacillin Sod/Tazobactam Sod (Zosyn 2.25 Gm Iv Premix) 2.25 gm in 50 mls @ 100 mls/hr IVPB Q8H [facility] Last Admin: 07/20/17 10:20 Dose: 100 mls/hr Heparin Sodium/Sodium Chloride (Heparin 30702 Units/250ml 1/2 Normal Saline) 25 ,000 units in 250 mls @ 10.886 mls/hr IV .[id number] PRN; Protocol; 12 UNITS/KG/HR PRN Reason: PROTOCOL Last Admin: 07/20/17 13:36 Dose: 12 units/kg/hr, 10.886 mls/hr Insulin Human Regular (Novolin R) 0 unit SC ACHS [facility] PRN Reason: Protocol Last Admin: 07/20/17 12:30 Dose: 1 unit Metoprolol Succinate (Toprol Xl) 50 mg PO DAILY [facility] Last Admin: 07/20/17 10:19 Dose: 50 mg Oseltamivir Phosphate (Tamiflu Susp) 30 mg PO DAILY [facility] Stop: 07/22/17 02:25 Last Admin: 07/20/17 10:20 Dose: 1 mg Promethazine HCl/Codeine (Phenergan/Codeine Oral Syrup) 5 ml PO Q4 PRN PRN Reason: Cough Last Admin: 07/19/17 09:07 Dose: 5 ml Rosuvastatin Calcium (Crestor) 10 mg PO HS [facility] Last Admin: 07/19/17 21:10 Dose: 10 mg Saccharomyces Boulardii (Florastor) 250 mg PO BID [facility] Last Admin: 07/20/17 10:19 Dose: 250 mg Tamsulosin HCl (Flomax) 0.4 mg PO DAILY [facility] Last Admin: 07/20/17 10:19 Dose: 0.4 mg Timolol Maleate (Timoptic 0.5% [facility]) 1 drop OU BID [facility] Last Admin: 07/20/17 10:20 Dose: 1 drop - Labs Labs: 07/20/17 06:23 07/20/17 06:23 PT 19.7 SECONDS (9.7-12.2) H 07/20/17 06:23 INR 1.7 07/20/17 06:23 APTT 37 SECONDS (21-34) H 07/16/17 21:06
--- NOTE | 2017-07-20 20:30 | CP.PCM.PN ---
Subjective - Date & Time of Evaluation Date of Evaluation: 07/20/17 Time of Evaluation: 07:00 - Subjective Subjective: Medicine Progress Note: Patient was seen and examined at bedside in the AM. Per nurse no acute events overnight. Patient states he denies shortness of breath, chest pain, nausea, vomiting, diarrhea or constipation. Patient was seen later in the morning and he stated he felt a bit of wheezing but he has not recently had any breathing treatments or congestion medication. Objective - Vital Signs/Intake and Output Vital Signs (last 24 hours): Temp Pulse Resp BP Pulse Ox 98 F 65 18 157/76 H 97 07/20/17 08:30 07/20/17 16:50 07/20/17 08:30 07/20/17 13:33 07/20/17 08:30 - Medications Medications: Current Medications Albuterol/Ipratropium (Duoneb 3 Mg/0.5 Mg (3 Ml) Ud) 3 ml INH RQ4 [facility] Last Admin: 07/20/17 19:55 Dose: Not Given Carbidopa/Levodopa (Sinemet) 1 tab PO QID [facility] Last Admin: 07/20/17 17:44 Dose: 1 tab Docusate Sodium (Colace) 100 mg PO HS [facility] Last Admin: 07/19/17 21:10 Dose: 100 mg Famotidine (Pepcid) 20 mg PO DAILY [facility] Last Admin: 07/20/17 10:19 Dose: 20 mg Gabapentin (Neurontin) 100 mg PO BID [facility] Last Admin: 07/20/17 17:44 Dose: 100 mg Guaifenesin (Mucinex La) 600 mg PO BID [facility] Last Admin: 07/20/17 17:44 Dose: 600 mg Piperacillin Sod/Tazobactam Sod (Zosyn 2.25 Gm Iv Premix) 2.25 gm in 50 mls @ 100 mls/hr IVPB Q8H [facility] Last Admin: 07/20/17 20:24 Dose: 100 mls/hr Heparin Sodium/Sodium Chloride (Heparin 40725 Units/250ml 1/2 Normal Saline) 25 ,000 units in 250 mls @ 10.886 mls/hr IV .[id number] PRN; Protocol; 12 UNITS/KG/HR PRN Reason: PROTOCOL Last Admin: 07/20/17 13:36 Dose: 12 units/kg/hr, 10.886 mls/hr Insulin Human Regular (Novolin R) 0 unit SC ACHS [facility] PRN Reason: Protocol Last Admin: 07/20/17 17:44 Dose: 1 unit Metoprolol Succinate (Toprol Xl) 50 mg PO DAILY [facility] Last Admin: 07/20/17 10:19 Dose: 50 mg Oseltamivir Phosphate (Tamiflu Susp) 30 mg PO DAILY [facility] Stop: 07/22/17 02:25 Last Admin: 07/20/17 10:20 Dose: 1 mg Promethazine HCl/Codeine (Phenergan/Codeine Oral Syrup) 5 ml PO Q4 PRN PRN Reason: Cough Last Admin: 07/19/17 09:07 Dose: 5 ml Rosuvastatin Calcium (Crestor) 10 mg PO HS [facility] Last Admin: 07/19/17 21:10 Dose: 10 mg Saccharomyces Boulardii (Florastor) 250 mg PO BID [facility] Last Admin: 07/20/17 17:44 Dose: 250 mg Tamsulosin HCl (Flomax) 0.4 mg PO DAILY [facility] Last Admin: 07/20/17 10:19 Dose: 0.4 mg Timolol Maleate (Timoptic 0.5% [facility]) 1 drop OU BID [facility] Last Admin: 07/20/17 17:44 Dose: 1 drop - Labs Labs: 07/20/17 06:23 07/20/17 06:23 PT 19.7 SECONDS (9.7-12.2) H 07/20/17 06:23 INR 1.7 07/20/17 06:23 APTT 66 SECONDS (21-34) H 07/20/17 19:44 - Constitutional Appears: No Acute Distress - Head Exam Head Exam: ATRAUMATIC, NORMAL INSPECTION - Eye Exam Eye Exam: Normal appearance - ENT Exam ENT Exam: Mucous Membranes Moist - Respiratory Exam Respiratory Exam: Rhonchi, Wheezes, NORMAL BREATHING PATTERN - Cardiovascular Exam Cardiovascular Exam: REGULAR RHYTHM, +S1, +S2 - GI/Abdominal Exam GI & Abdominal Exam: Soft, Normal Bowel Sounds. absent: Tenderness - Extremities Exam Extremities Exam: Normal Inspection - Neurological Exam Neurological Exam: Alert, Awake, Oriented x3 - Psychiatric Exam Psychiatric exam: Normal Affect, Normal Mood - Skin Skin Exam: Normal Color, Warm Assessment and Plan - Assessment and Plan (Free Text) Assessment: 87 y/o male, with a Hx of AFib, HTN, DM, Parkinson's Disease, and Dementia who presents to the ED from senior care with a complaint of SOB. 1.) Hypoxic possibly secondary to pneumonia - resolved - Not in distress - 3L of NC saturation 97% - ABG within normal limits - Lactate 1.4 - Pulm Consult: Dr. Lloyd --> help appreciated - ID Consult: Dr. Thornton --> help appreciated - Imaging CT Chest: Dense coronary artery calcifications. Right peritracheal lymph node measures approximately 10 mm in short axis. Additional sub cm mediastinal lymph nodes, nonspecific. Mild pulmonary venous congestion. Small bilateral pleural effusions and associated consolidations. 6 mm spiculated nodular density in the right upper lobe. Recommend [address] follow-up. Limited visualized upper abdomen: Cholelithiasis. Too small to characterize partially imaged renal hypodensities, possibly cysts. Large partially imaged fat containing ventral hernia. X-ray (07/18/17): Improving congestive heart failure. - Blood culture negative - preliminary - Medications * Duoneb q4h * Zosyn started 07/16/17; Zosyn dose changed to 2.25gm on 07/18/17 2.) Influenza Type A - Febrile on admission; currently afebrile, no leukocytosis - Imaging: CXR: Questionable infiltrates CT Chest: Dense coronary artery calcifications. Right peritracheal lymph node measures approximately 10 mm in short axis. Additional sub cm mediastinal lymph nodes, nonspecific. Mild pulmonary venous congestion. Small bilateral pleural effusions and associated consolidations. 6 mm spiculated nodular density in the right upper lobe. Recommend [address] follow-up. Limited visualized upper abdomen: Cholelithiasis. Too small to characterize partially imaged renal hypodensities, possibly cysts. Large partially imaged fat containing ventral hernia. - Medications: * Zosyn started 07/16/17; Zosyn dose changed to 2.25gm on 07/18/17 * Vancomycin started 07/16/17 - discontinued 07/18/17 * Vanco Trogh 10.8 * Random Vanco 9.98 * Tamiflu 30mg PO daily x 5 days (renally dosed) started 07/16/17 - completed 5 day course - Procalcitonin: 6.26 --> 2.05 - ID Consult: Dr. Thornton --> help appreciated - f/u recommendations 3.) CKD Stage 3B - BUN/Cr: 31/2.0 - ugzman catheter: Monitor I/Os - urine culture negative 4.) History of CHF - ECHO 2013 LVEF 28% - ECHO (07/17/17): LVEF 35-40%. The left ventricle is moderately dilated with possible borderline to mild concentric hypertrophy. There is global hypokinesis of the left ventricle. The systolic function is moderately impaired. The right ventricular systolic function is normal. Mitral regurgitation is mild. There is mild tricuspid regurgitation. Right ventricular systolic pressure is about 43mmHg compatible with mild pulmonary hypertension. There is no gross pericardial effusion. 5.) History AFib - Resumed home medications: Coumadin will need to be ordered daily. * Coumadin 2mg MWF * Coumadin 1mg STT - Current INR 1.7 - Monitor INR - Patient started on heparin drip to bridge to Coumadin - 3mg of Coumadin given 07/20/17 6.) History of DM - Accuchecks - HgbA1C: 6.8 - ISS- Low 7.) History of Hypertension - Resumed home medications: Metoprolol 50mg PO daily 8.) History of Parkinson's Disease 9.) History of Dementia - Resumed home medications: Sinemet daily 10.) Prophylaxis - GI PPX: Pepcid 20mg PO daily - DVT PPX: SCDs, Lovenox 90mg SC daily - PT/OT Case discussed with Dr. Prosper Chan PGY-1
[2017-07-20] MEDS: Promethazine/Cod 6.25mg-10mg/5ml Syr UD PO PRN (21:07)
[2017-07-21] MEDS: Albuterol-Ipratrop 3 mg / 0.5 (3 ml) UD INH SCH ×5 (00:22→17:04)
[2017-07-21] MEDS: Piperacill/Tazo 2.25gm in Dex 2.25 GM/50 ML BAG IVPB SCH ×3 (02:34→17:19)
[2017-07-21] MEDS: (Novolin R) Insulin Human Regular 100 units/ml vial SC SCH ×3 (07:30→16:42)
[2017-07-21 07:58] LABS: INR 1.9; PROTHROMBIN TIME 22.5 SECONDS (9.7-12.2)
[2017-07-21 08:15] VITALS: RESP 20; O2SAT 98
[2017-07-21 08:26] LABS: BASO % 0.4 % (0.0-2.0); EOS % 0.6 % (0.0-4.0); HEMOGLOBIN 11.9 g/dL (12.0-18.0); LYMPH # 1.2 K/uL (1.0-4.3); LYMPH % 27.9 % (20.0-40.0); MEAN CELL VOLUME 84.9 fL (80.0-94.0); MEAN CORPUSCULAR HEMOGLOBIN 28.5 pg (27.0-31.0); MEAN CORPUSCULAR HGB CONC 33.6 g/dL (33.0-37.0); MEAN PLATELET VOLUME 9.5 fL (7.2-11.7); MONO # 0.4 K/uL (0.0-0.8); MONO % 9.3 % (0.0-10.0); NEUT # 2.6 K/uL (1.8-7.0); NEUT % 61.8 % (50.0-75.0); NRBC % 0.1 % (0.0-2.0); RBC 4.18 Mil/uL (4.40-5.90); RED CELL DISTRIBUTION WIDTH 15.1 % (11.5-14.5); WHITE BLOOD COUNT 4.3 K/uL (4.8-10.8)
[2017-07-21 08:39] LABS: ALB/GLOB RATIO 1.1 (1.0-2.1); ALBUMIN 3.5 g/dL (3.5-5.0); CALCIUM 8.4 mg/dl (8.6-10.4); MAGNESIUM 1.7 mg/dL (1.6-2.3)
[2017-07-21] MEDS: Promethazine/Cod 6.25mg-10mg/5ml Syr UD PO PRN ×2 (09:47→17:31)
[2017-07-21] MEDS: guaiFENesin 600 mg ER Tab PO SCH ×2 (09:50→17:20)
[2017-07-21] MEDS: Saccharomyces Boulardi 250 mg Cap PO SCH ×2 (09:50→17:20)
[2017-07-21] MEDS: Carbidopa/Levodopa 25/250 PO SCH ×3 (09:54→17:20)
[2017-07-21] MEDS: Oseltamivir 6 MG/ML PO SCH (10:00)
[2017-07-21] MEDS: Metoprolol Succinate 50 mg XL Tab PO SCH (10:03)
--- NOTE | 2017-07-21 13:19 | CP.PCM.PN ---
Subjective - Date & Time of Evaluation Date of Evaluation: 07/21/17 Time of Evaluation: 11:00 - Subjective Subjective: Patient seen and examined at bedside. He is resting in bed comfortably. He states that he does not feel short of breath but states his cough is still present. He states that [facility]. He denies fever, chills, chest pain, headache, abdominal pain, leg pain, nausea, vomiting. Assessment and plan: 87 year old male with history of A fib on Coumadin (2mg MWF, 1mg TTS), HTN, DM, CAD, Parkinson's who [facility] on 07/16/17 for complaints of shortness of breath. Pulmonology consulted for pneumonia. Viral respiratory infection, Influenza 98% on RA Positive for Influenza A CXR 07/16/17: prominent bibasilar airspace opacities. small bilateral pleural effusions. diffuse increased interstistial lung markings. biapical pleural thickening, cardiomegaly. CT Chest: Dense coronary artery calcifications. Right peritracheal lymph node measures approximately 10 mm in short axis. Additional sub cm mediastinal lymph nodes, nonspecific. Mild pulmonary venous congestion. Small bilateral pleural effusions and associated consolidations. 6 mm spiculated nodular density in the right upper lobe. Recommend [address] follow-up. Limited visualized upper abdomen: Cholelithiasis. Too small to characterize partially imaged renal hypodensities, possibly cysts. Large partially imaged fat containing ventral hernia. CXR 07/18/17: improving CHF ECHO: The left ventricle is moderately dilated with possible borderline to mild concentric hypertrophy. there is global hypokinesis of the left ventricle. the systolic function is moderately impaired. The EF is 35-40%. moderate diastolic dysfunction. Transmitral doppler flow pattern is Grade II-pseudonormal filling dynamics. Elevated left atrial pressure. the right ventricular systolic fucntion is normal. mitral regurgitation is mild. there is mild tricuspid regurgitation. right ventricular systolic pressure is estimated at 43mmHg, compatible with mild pulmonary HTN. there is no gross pericardial effusion. 07/16 VBG pH 7.27 pO2 56 pCO2 48 HCO3 20.6 Pneumonia Tmax 101.1 Blood cultures pending. Urine culture negative Procalcitonin (07/18) 6.26 -> (07/19) 4.30 07/19 Lactic acid 1.6 Follow up with ID Dr. Norberto talley. Continue meds: Albuterol/Tiotropium 3cc INH RQ4 Mucinex 600mg PO BID Tamiflu 30mg PO daily x5 days (renally dosed since pt has hx of CKD-Stage3) Zosyn 2.25 g IV (renally dosed since pt has hx of CKD-stage 3) Phenergan /codeine 5ml PO Q4 PRN Objective - Vital Signs/Intake and Output Vital Signs (last 24 hours): Temp Pulse Resp BP Pulse Ox 97.6 F 67 20 172/68 H 98 07/21/17 07:30 07/21/17 07:30 07/21/17 07:30 07/21/17 07:30 07/21/17 07:30 Intake and Output: 07/21/17 07/21/17 06:59 18:59 Intake Total 780 Balance 780 - Medications Medications: Current Medications Albuterol/Ipratropium (Duoneb 3 Mg/0.5 Mg (3 Ml) Ud) 3 ml INH RQ4 [facility] Last Admin: 07/21/17 11:17 Dose: 3 ml Carbidopa/Levodopa (Sinemet) 1 tab PO QID [facility] Last Admin: 07/21/17 09:54 Dose: 1 tab Docusate Sodium (Colace) 100 mg PO HS [facility] Last Admin: 07/20/17 21:05 Dose: 100 mg Famotidine (Pepcid) 20 mg PO DAILY [facility] Last Admin: 07/21/17 09:50 Dose: 20 mg Gabapentin (Neurontin) 100 mg PO BID [facility] Last Admin: 07/21/17 09:50 Dose: 100 mg Guaifenesin (Mucinex La) 600 mg PO BID [facility] Last Admin: 07/21/17 09:50 Dose: 600 mg Hydralazine HCl (Apresoline) 10 mg IVP Q6H PRN PRN Reason: Systolic Blood Pressure Last Admin: 07/21/17 06:16 Dose: 10 mg Piperacillin Sod/Tazobactam Sod (Zosyn 2.25 Gm Iv Premix) 2.25 gm in 50 mls @ 100 mls/hr IVPB Q8H [facility] Last Admin: 07/21/17 10:02 Dose: 100 mls/hr Insulin Human Regular (Novolin R) 0 unit SC ACHS [facility] PRN Reason: Protocol Last Admin: 07/21/17 11:30 Dose: 1 unit Metoprolol Succinate (Toprol Xl) 50 mg PO DAILY [facility] Last Admin: 07/21/17 10:03 Dose: 50 mg Oseltamivir Phosphate (Tamiflu Susp) 30 mg PO DAILY [facility] Stop: 07/22/17 02:25 Last Admin: 07/21/17 10:00 Dose: 30 mg Promethazine HCl/Codeine (Phenergan/Codeine Oral Syrup) 5 ml PO Q4 PRN PRN Reason: Cough Last Admin: 07/21/17 09:47 Dose: 5 ml Rosuvastatin Calcium (Crestor) 10 mg PO HS [facility] Last Admin: 07/20/17 21:04 Dose: 10 mg Saccharomyces Boulardii (Florastor) 250 mg PO BID [facility] Last Admin: 07/21/17 09:50 Dose: 250 mg Tamsulosin HCl (Flomax) 0.4 mg PO DAILY [facility] Last Admin: 07/21/17 09:50 Dose: 0.4 mg Timolol Maleate ([facility]) 1 drop OU BID [facility] Last Admin: 07/21/17 09:53 Dose: 1 drop Warfarin Sodium (Coumadin) 3 mg PO ONCE [facility] - Labs Labs: 07/21/17 07:47 07/21/17 07:47 PT 22.5 SECONDS (9.7-12.2) H 07/21/17 07:47 INR 1.9 07/21/17 07:47 APTT 78 SECONDS (21-34) H D 07/21/17 02:42
[2017-07-21 15:59] VITALS: BP 149/70; TEMP 97.8
--- NOTE | 2017-07-21 16:51 | CP.PCM.DIS ---
Provider - Provider Date of Admission: 07/16/17 21:58 Attending physician: Raysa Cheng DO Time Spent in preparation of Discharge (in minutes): 40 Hospital Course - Lab Results Lab Results: Micro Results 07/16/17 20:45 Blood Blood Culture - Preliminary NO GROWTH AFTER 4 DAYS 07/16/17 21:15 Blood Blood Culture - Preliminary NO GROWTH AFTER 4 DAYS 07/17/17 19:00 Urine,Clean Catch Urine Culture - Final No Growth (<1,000 CFU/ML) Most Recent Lab Values WBC 4.3 K/uL (4.8-10.8) L 07/21/17 07:47 RBC 4.18 Mil/uL (4.40-5.90) L 07/21/17 07:47 Hgb 11.9 g/dL (12.0-18.0) L 07/21/17 07:47 Hct 35.5 % (35.0-51.0) 07/21/17 07:47 MCV 84.9 fL (80.0-94.0) 07/21/17 07:47 MCH 28.5 pg (27.0-31.0) 07/21/17 07:47 MCHC 33.6 g/dL (33.0-37.0) 07/21/17 07:47 RDW 15.1 % (11.5-14.5) H 07/21/17 07:47 Plt Count 131 K/uL (130-400) 07/21/17 07:47 MPV 9.5 fL (7.2-11.7) 07/21/17 07:47 Neut % (Auto) 61.8 % (50.0-75.0) 07/21/17 07:47 Lymph % (Auto) 27.9 % (20.0-40.0) 07/21/17 07:47 [place] % (Auto) 9.3 % (0.0-10.0) 07/21/17 07:47 Eos % (Auto) 0.6 % (0.0-4.0) 07/21/17 07:47 Baso % (Auto) 0.4 % (0.0-2.0) 07/21/17 07:47 Neut # 2.6 K/uL (1.8-7.0) 07/21/17 07:47 Lymph # 1.2 K/uL (1.0-4.3) 07/21/17 07:47 [place] # 0.4 K/uL (0.0-0.8) 07/21/17 07:47 Eos # 0.0 K/uL (0.0-0.7) 07/21/17 07:47 Baso # 0.0 K/uL (0.0-0.2) 07/21/17 07:47 Differential Comment 07/19/17 11:14 PT 22.5 SECONDS (9.7-12.2) H 07/21/17 07:47 INR 1.9 07/21/17 07:47 APTT 78 SECONDS (21-34) H D 07/21/17 02:42 Puncture Site Lrad 07/18/17 10:30 pCO2 40 mm/Hg (35-45) 07/18/17 10:30 pO2 139 mm/Hg (80-100) H 07/18/17 10:30 HCO3 24.0 mmol/L (21-28) 07/18/17 10:30 ABG pH 7.38 (7.35-7.45) 07/18/17 10:30 ABG Total CO2 24.9 mmol/L (22-28) 07/18/17 10:30 ABG O2 Saturation 99.3 % (95-98) H 07/18/17 10:30 ABG Base Excess -1.3 mmol/L (-2.0-3.0) 07/18/17 10:30 Jonny Test Pos 07/18/17 10:30 ABG Potassium 4.1 mmol/L (3.6-5.2) 07/18/17 10:30 VBG pH 7.27 (7.32-7.43) L 07/16/17 21:18 VBG pCO2 48 mmHg (40-60) 07/16/17 21:18 VBG HCO3 20.6 mmol/L 07/16/17 21:18 VBG Total CO2 23.5 mmol/L (22-28) 07/16/17 21:18 VBG O2 Sat (Calc) 90.0 % (40-65) H 07/16/17 21:18 VBG Base Excess -5.1 mmol/L (0.0-2.0) L 07/16/17 21:18 VBG Potassium 6.3 mmol/L (3.6-5.2) H* 07/16/17 21:18 Sodium 140.0 mmol/l (132-148) 07/18/17 10:30 Chloride 111.0 mmol/L (98-107) H 07/18/17 10:30 Glucose 167 mg/dl (75-110) H 07/18/17 10:30 Lactate 1.4 mmol/L (0.7-2.1) 07/18/17 10:30 Liter Flow 6.0 07/18/17 10:30 Crit Value Called To 07/16/17 21:18 Crit Value Called By Kortney hernandez 07/16/17 21:18 Crit Value Read Back Y 07/16/17 21:18 Blood Gas Notified Time 212107/16/17 21:18 Sodium 131 mmol/L (132-148) L 07/21/17 07:47 Potassium 4.3 mmol/L (3.6-5.2) 07/21/17 07:47 Chloride 98 mmol/L (98-107) 07/21/17 07:47 Carbon Dioxide 24 mmol/L (22-30) 07/21/17 07:47 Anion Gap 13 (10-20) 07/21/17 07:47 BUN 32 mg/dL (9-20) H 07/21/17 07:47 Creatinine 2.0 mg/dL (0.8-1.5) H 07/21/17 07:47 Est GFR ( Amer) 38 07/21/17 07:47 Est GFR (Non-Af Amer) 32 07/21/17 07:47 POC Glucose (mg/dL) 144 mg/dL (65-110) H 07/21/17 16:23 Random Glucose 186 mg/dL (75-110) H 07/21/17 07:47 Hemoglobin A1c 6.8 % (4.2-6.5) H 07/17/17 07:50 Lactic Acid 1.2 mmol/L (0.7-2.1) 07/20/17 11:48 Calcium 8.4 mg/dl (8.6-10.4) L 07/21/17 07:47 Phosphorus 2.9 mg/dL (2.5-4.5) 07/21/17 07:47 Magnesium 1.7 mg/dL (1.6-2.3) 07/21/17 07:47 Total Bilirubin 0.6 mg/dL (0.2-1.3) 07/21/17 07:47 AST 26 U/L (17-59) 07/21/17 07:47 ALT 20 U/L (21-72) L 07/21/17 07:47 Alkaline Phosphatase 71 U/L (38-126) 07/21/17 07:47 Troponin I 0.0340 ng/mL (0.00-0.120) 07/16/17 21:06 NT-Pro-B Natriuret Pep 4060 pg/mL (0-900) H 07/16/17 21:06 Total Protein 6.7 g/dL (6.3-8.3) 07/21/17 07:47 Albumin 3.5 g/dL (3.5-5.0) 07/21/17 07:47 Globulin 3.2 gm/dL (2.2-3.9) 07/21/17 07:47 Albumin/Globulin Ratio 1.1 (1.0-2.1) 07/21/17 07:47 Triglycerides 95 mg/dL (0-149) 07/17/17 07:50 Cholesterol 140 mg/dL (0-199) 07/17/17 07:50 LDL Cholesterol Direct 87 mg/dL (0-129) 07/17/17 07:50 HDL Cholesterol 26 mg/dL (30-70) L 07/17/17 07:50 Procalcitonin 2.05 NG/ML (0.19-0.49) H 07/20/17 11:48 Thyroxine (T4) 6.09 ug/dL (5.5-11.0) 07/17/17 07:50 TSH 3rd Generation 0.86 mIU/L (0.46-4.68) 07/17/17 07:50 Arterial Blood Potassium 4.1 mmol/L (3.6-5.2) 07/18/17 10:30 Venous Blood Potassium 6.3 mmol/L (3.6-5.2) H* 07/16/17 21:18 Urine Color Yellow (YELLOW) 07/17/17 18:59 Urine Clarity Clear (Clear) 07/17/17 18:59 Urine pH 5.0 (5.0-8.0) 07/17/17 18:59 Ur Specific [place] 1.016 (1.003-1.030) 07/17/17 18:59 Urine Protein 2+ mg/dL (NEGATIVE) H 07/17/17 18:59 Urine Glucose (UA) Normal mg/dL (Normal) 07/17/17 18:59 Urine Ketones Negative mg/dL (NEGATIVE) 07/17/17 18:59 Urine Blood Negative (NEGATIVE) 07/17/17 18:59 Urine Nitrate Negative (NEGATIVE) 07/17/17 18:59 Urine Bilirubin Negative (NEGATIVE) 07/17/17 18:59 Urine Urobilinogen Normal mg/dL (0.2-1.0) 07/17/17 18:59 Ur Leukocyte Esterase Neg Mikel/uL (Negative) 07/17/17 18:59 Urine WBC (Auto) 1 /hpf (0-5) 07/17/17 18:59 Urine RBC (Auto) 2 /hpf (0-3) 07/17/17 18:59 Ur Squamous Epith Cells 1 /hpf (0-5) 07/17/17 18:59 Ur Transition Epith Cell < 1 /hpf (0-3) 07/17/17 18:59 Urine Bacteria Rare (<OCC) 07/17/17 18:59 Hyaline Casts 3-5 /lpf (0-2) H 07/17/17 18:59 Vancomycin Trough 10.8 ug/mL (5.0-10.0) H 07/18/17 07:51 Random Vancomycin 9.98 ug/mL 07/18/17 12:28 Influenza Typ A,B (EIA) Pos for influenza a (NEGATIVE) H 07/16/17 21:25 - Hospital Course Hospital Course: HPI: Patient is an 87 y/o male, with a Hx of AFib, HTN, DM, PD, and Dementia who presents to the ED from long term with a complaint of SOB. Per long term, patient was hypoxic and tachypnic with no reported fever. Patient is full code at this time. History unable to be retrieve from the patient, he is alert but does not answer questions. Patient was saturating well on BiPAP - O2% was titrated to 30% during exam. PMHx: AFib, HTN, DM, PD, and Dementia PSHx: Hemicolectomy s/p colon cancer Meds: As per AUG, reviewed and confirmed All: NKDA SHx: Unknown FHx: Unknown PMD: Unknown Hospital Course: Patient was found to be positive for influenza A. Febrile on admission; currently afebrile, no leukocytosis. On admission patient was hypoxic secondary to pneumonia and influenza. Patient was not in distress. Patient was placed on bipap. Later switched to non-airway breather and then switched to NC. Pulm Dr. Lloyd and Infectious disease Dr. Thornton. Patient was started on Tamiflu 30mg daily; Zosyn was started and Vancomycin. Vancomycin was discontinued . Procalcitonin decreased from admission 6.26 --> 2.05. Patient's INR was 1.7 during hospitalization. Patient was placed on heparin drip and bridged back to Coumadin. INR on discharge 1.9. - Imaging CT Chest: Dense coronary artery calcifications. Right peritracheal lymph node measures approximately 10 mm in short axis. Additional sub cm mediastinal lymph nodes, nonspecific. Mild pulmonary venous congestion. Small bilateral pleural effusions and associated consolidations. 6 mm spiculated nodular density in the right upper lobe. Recommend [address] follow-up. Limited visualized upper abdomen: Cholelithiasis. Too small to characterize partially imaged renal hypodensities, possibly cysts. Large partially imaged fat containing ventral hernia. X-ray (07/18/17): Improving congestive heart failure. - ECHO 2013 LVEF 28% - ECHO (07/17/17): LVEF 35-40%. The left ventricle is moderately dilated with possible borderline to mild concentric hypertrophy. There is global hypokinesis of the left ventricle. The systolic function is moderately impaired. The right ventricular systolic function is normal. Mitral regurgitation is mild. There is mild tricuspid regurgitation. Right ventricular systolic pressure is about 43mmHg compatible with mild pulmonary hypertension. There is no gross pericardial effusion. Patient was seen and examined at bedside in the AM. Patient stated he would like to go back to the long term. Patient denied shortness of breath chest pain, nausea, vomiting, diarrhea, or constipation. Patient stated he was still coughing but with improvement. Spoke with Dr. Thornton and per Dr. Thornton patient to continue antibiotic Augmentin for 7 more day, tamiflu 30mg daily for 2 days; medrol pack and duonebs. Discussed with patient and he understands. Patient stable for discharge to the long term per Dr. Cheng. Patient to continue home medications. Patient to continue new medications: - Medrol dose pack. - Augmentin 500mg twice per day for 7 days. - Duonebs every 4 hours - Tamiflu 30mg daily for 2 more days. Patient to follow up with primary doctor in one week. Please return to the emergency room if symptoms return or worsen. This is a summary of patient's hospital course, please see chart for full details. Discharge Exam - Head Exam Head Exam: ATRAUMATIC, NORMAL INSPECTION Discharge Plan - Discharge Medications Prescriptions: Amoxicillin/Potassium Clav [Augmentin 500-125 Tablet] 1 each PO BID #14 tablet Methylprednisolone [Medrol Dose Pack (21 tabs)] 4 mg PO DAILY #21 mg Oseltamivir Phosphate [Tamiflu] 30 mg PO DAILY #2 capsule - Follow Up Plan Condition: GOOD Disposition: NURSING FACILITY MEDICAID CERT Instructions: Amoxicillin/Clavulanate Potassium (By mouth), Methylprednisolone (By mouth), Oseltamivir (By mouth), Heart Failure (DC), Influenza (DC), Pneumonia (DC) Additional Instructions: Continue home medications. New medications as ordered. (Medrol dosepack, Augmentin 500 mg twice a day for 7 days, duonebs every four hours, tamiflu 30mg daily for two more days) Follow up with primary physician in 1 week. Please return to the Emergency Room if symptoms return or worsen.
--- NOTE | 2017-07-21 19:19 | CP.PCM.PN ---
Subjective - Date & Time of Evaluation Date of Evaluation: 07/21/17 Time of Evaluation: 04:00 - Subjective Subjective: Dictated Objective - Vital Signs/Intake and Output Vital Signs (last 24 hours): Temp Pulse Resp BP Pulse Ox 97.8 F 57 L 20 149/70 98 07/21/17 15:00 07/21/17 16:51 07/21/17 07:30 07/21/17 15:00 07/21/17 07:30 Intake and Output: 07/21/17 07/22/17 18:59 06:59 Intake Total 520 Output Total 750 Balance -230 - Medications Medications: Current Medications Albuterol/Ipratropium (Duoneb 3 Mg/0.5 Mg (3 Ml) Ud) 3 ml INH RQ4 [facility] Last Admin: 07/21/17 17:04 Dose: 3 ml Carbidopa/Levodopa (Sinemet) 1 tab PO QID [facility] Last Admin: 07/21/17 17:20 Dose: 1 tab Docusate Sodium (Colace) 100 mg PO HS [facility] Last Admin: 07/20/17 21:05 Dose: 100 mg Famotidine (Pepcid) 20 mg PO DAILY [facility] Last Admin: 07/21/17 09:50 Dose: 20 mg Gabapentin (Neurontin) 100 mg PO BID [facility] Last Admin: 07/21/17 17:20 Dose: 100 mg Guaifenesin (Mucinex La) 600 mg PO BID [facility] Last Admin: 07/21/17 17:20 Dose: 600 mg Hydralazine HCl (Apresoline) 10 mg IVP Q6H PRN PRN Reason: Systolic Blood Pressure Last Admin: 07/21/17 06:16 Dose: 10 mg Piperacillin Sod/Tazobactam Sod (Zosyn 2.25 Gm Iv Premix) 2.25 gm in 50 mls @ 100 mls/hr IVPB Q8H [facility] Last Admin: 07/21/17 17:19 Dose: 100 mls/hr Insulin Human Regular (Novolin R) 0 unit SC ACHS [facility] PRN Reason: Protocol Last Admin: 07/21/17 16:42 Dose: Not Given Metoprolol Succinate (Toprol Xl) 50 mg PO DAILY [facility] Last Admin: 07/21/17 10:03 Dose: 50 mg Oseltamivir Phosphate (Tamiflu Susp) 30 mg PO DAILY [facility] Stop: 07/22/17 02:25 Last Admin: 07/21/17 10:00 Dose: 30 mg Promethazine HCl/Codeine (Phenergan/Codeine Oral Syrup) 5 ml PO Q4 PRN PRN Reason: Cough Last Admin: 07/21/17 17:31 Dose: 5 ml Rosuvastatin Calcium (Crestor) 10 mg PO HS [facility] Last Admin: 07/20/17 21:04 Dose: 10 mg Saccharomyces Boulardii (Florastor) 250 mg PO BID [facility] Last Admin: 07/21/17 17:20 Dose: 250 mg Tamsulosin HCl (Flomax) 0.4 mg PO DAILY [facility] Last Admin: 07/21/17 09:50 Dose: 0.4 mg Timolol Maleate (Timoptic 0.5% [facility]) 1 drop OU BID [facility] Last Admin: 07/21/17 17:20 Dose: 1 drop Warfarin Sodium (Coumadin) 3 mg PO ONCE [facility] - Labs Labs: 07/21/17 07:47 07/21/17 07:47 PT 22.5 SECONDS (9.7-12.2) H 07/21/17 07:47 INR 1.9 07/21/17 07:47 APTT 78 SECONDS (21-34) H D 07/21/17 02:42
[2017-07-21 20:13] VITALS: PULSE 61
--- NOTE | 2017-07-21 20:48 | PN ---
DATE: SUBJECTIVE: He remains in isolation as he has flu and he has been on IV antibiotic as his procalcitonin level was also high and he probably had pneumonia also. His voice remains weak and he has a nasal voice, but he says he is breathing easier. He wanted to go back. PHYSICAL EXAMINATION: VITAL SIGNS: His T-max is 97.8, heart rate of 57, blood pressure 149/70, respirations are 20. HEENT: Head is atraumatic, normocephalic. Tongue is moist. NECK: Supple. LUNGS: Have bilateral expiratory wheeze. HEART: S1 and S2 are regular. ABDOMEN: Soft, nontender. No guarding. No rigidity present. EXTREMITIES: Have no edema. ASSESSMENT AND PLAN: The patient was discussed with Dr. Quiñones____ and we both decided that he can go on Augmentin for a week along with Tamiflu for 2 more days and to get Medrol Dosepak as he is still wheezing and to be continued on DuoNeb treatments and his CAT scan was abnormal. He needs to follow up with the Pulmonary and needs close followup with the Pulmonary. The patient probably will be discharged. Trinh Thornton MD MTDD
== END 2017-07-21 19:55 | DRG 194 ==
LOC: C.ER 20:40 → C.9E 21:58 → C.5S 23:18
PROVIDERS: ADMIT Hospitalist; ATTEND Hospitalist
DX: J11.00 Influenza due to unidentified influenza virus with unspecified type of pneumonia (principal); I13.0 Hypertensive heart and chronic kidney disease with heart failure and stage 1 through stage 4 chronic kidney disease, or unspecified chronic kidney disease; E11.22 Type 2 diabetes mellitus with diabetic chronic kidney disease; G20 Parkinson's disease; I27.20 Pulmonary hypertension, unspecified; N18.3 Chronic kidney disease, stage 3 (moderate); I48.2 Chronic atrial fibrillation; I25.10 Atherosclerotic heart disease of native coronary artery without angina pectoris; I50.9 Heart failure, unspecified; R09.02 Hypoxemia; Z87.891 Personal history of nicotine dependence; Z95.5 Presence of coronary angioplasty implant and graft; F03.90 Unspecified dementia, unspecified severity, without behavioral disturbance, psychotic disturbance, mood disturbance, and anxiety